=== PATIENT | male | born 1930 | race Caucasian/White ===

== ENCOUNTER 2017-06-23 05:49 | Emergency (ER) | payer MEDICARE, OTHER ==
[2017-06-23] MEDS ORDERED: LORazepam 2 MG/ML DISP.SYRIN IV ONE ×2 (06:03→06:49)
[2017-06-23] MEDS ORDERED: LORazepam 2 MG/ML DISP.SYRIN ONE (06:09)
[2017-06-23 06:17] LABS: Hematocrit 39.2 % (42.0-52.0); Hemoglobin 13.3 gm/dL (13.5-18.0); Mean Cell Volume 94.7 fl (78-100); Mean Corpuscular Hemoglobin 32.1 pg (27-31); Mean Corpuscular Hgb Conc 33.9 g/dl (32-36); Mean Platelet Volume 10.5 fl (6.0-9.5); Neutrophil # 2.9 K/mm3 (1.3-6.0); Neutrophil % 46.6 % (42-75.0); Platelet Count 193 K/mm3 (150-450); Red Blood Count 4.14 M/mm3 (4.7-6.0); Red Cell Distribution Width 13.1 % (11.5-14.0); White Blood Count 6.2 K/mm3 (4.0-10.5)
[2017-06-23 06:31] LABS: BUN/Creatinine Ratio 20.5 (9.0-21.6); Blood Urea Nitrogen 24 mg/dL (6-23); Calcium * 8.7 mg/dL (7.9-10.9); Estimated Creat Clear 57.7; Glucose * 129 mg/dL (70-110)
[2017-06-23 06:36] LABS: Troponin I Less than 0.017 ng/ml (0.00-0.10)
--- NOTE | 2017-06-23 06:37 | ERNOTE ---
Chest Pain/Cardiac HPI Date of Service: 06/23/17 Chief Complaint: Palpitations Time Seen by Provider: 06/23/17 05:56 Source: patient Exam Limitations: no limitations Immunizations: IMMUNIZATION HX Immunizations Up to Date Yes History of Influenza Vaccine No Allergies/Adverse Reactions: Allergies Penicillins Allergy (Verified 06/23/17 06:02) Home Medications: HOME MEDICATIONS Aspirin [Aspirin Chewable] 81 mg PO DAILY 01/17/14 [Last Taken Unknown] Calcium Carbonate [Calcium] 500 mg PO DAILY 01/17/14 [Last Taken Unknown] Multivit-Min/FA/Lycopene/Lut [Centrum Silver Tablet] 1 each PO DAILY 01/17/14 [ Last Taken Unknown] Naproxen 500 mg PO BID 12/21/14 [Last Taken Unknown] ALPRAZolam [Xanax] 0.5 mg PO TID PRN #8 tablet 06/23/17 [Last Taken Unknown] Narrative: 86 year old that was on his way to the bathroom and suddenly experienced palpitations. Denies any shortness of breath, chest or abdominal pain. Denies any fevers, chills, N/V or diaphoresis. Hx of anxiety and panic attack 20 year ago. Ashok is scheduled to see a school leader due to dyspnea with exertion for a couple of months. Date (Duration): 06/23/17 Time (Timing): 06:03 Timing: constant Severity/Quality: moderate Chest Pain Radiation: no radiation Activities at Onset: other Modifying Factors - Improves: Present: nothing Modifying Factors - Worsens: Present: nothing Nitro Today/Relief: no nitro taken today Aspirin Treatment Today: no aspirin today Associated Symptoms: Present: denies symptoms Prior Chest Pain/Cardiac Workup: Reports: no prior cardiac workup Review of Systems - Review of Systems Constitutional: Present: no symptoms reported EYE: Present: no symptoms reported ENT: Present: no symptoms reported Respiratory: Present: no symptoms reported Cardiology: Present: no symptoms reported Gastrointestinal/Abdominal: Present: no symptoms reported Genitourinary: Present: no symptoms reported Musculoskeletal: Present: no symptoms reported Skin: Present: no symptoms reported Neurological: Present: no symptoms reported Endocrine: Present: no symptoms reported Hematologic/Lymphatic: Present: no symptoms reported Psych: Present: no symptoms reported - Patient's Past Medical History Patient History - Medical: Anxiety Patient History - Cardiac/Respiratory: Hyperlipidemia Patient History - Cancer: No Hx of Cancer Patient History - Surgical Procedures: No surgical history - Social History Living Situations: home Smoking Status: Former smoker Alcohol Use: none Drug Use: none - Immunizations Immunizations Up to Date: Yes History of Influenza Vaccine: No Physical Exam - Physical Exam General Appearance: Present: alert, anxious Head Exam: Present: normal inspection Eye Exam: Normal inspection: bilateral Ears, Nose, Throat: Present: normal ENT inspection Neck: Present: normal inspection Respiratory: Present: no respiratory distress Cardiovascular/Chest: Present: regular rate, rhythm Gastrointestinal/Abdominal: Present: nontender, nondistended Back Exam: Present: normal inspection Extremity Exam: Present: normal inspection Neurological Exam: Present: alert, oriented Skin Exam: Present: normal color ED Progress - Results and Orders Patient's Lab Results:: I have reviewed the patient's lab results. - Vital Signs Patient's Vital Signs:: I have reviewed the patient's vital signs. Vital Signs: Vital Signs 06/23/17 05:57 Temperature 36.7 C Pulse Rate 96 Respiratory 21 H Rate Blood Pressure 192/95 O2 Sat by Pulse 97 Oximetry - EKG EKG: NSR EKG read: Interp. by me EKG Comments: normal axis - Progress/Reassessment Chief Complaint: Palpitations Progress:: Improved Progress Note-Subjective: 06/23/17 06:56 Feeling better after the medication and requested additional medication for his anxiety. Departure Clinical Impression: Heart palpitations - Departure Disposition: Home self-care Condition: Good Instructions: Panic Attacks, [id number] Print Language: Latvian Additional Instructions: See your physician so that medication can be prescribed for your anxiety. Return to the ED as needed. Referrals: Wilton Gaming MD [Primary Care Provider] - Prescriptions: ALPRAZolam [Xanax] 0.5 mg PO TID PRN #8 tablet PRN Reason: Anxiety
[2017-06-23 06:41] LABS: Carbon Dioxide 25.2 mmol/L (24-32.6); Chloride 108 mmol/L (97-106); Potassium 4.2 mmol/L (3.4-4.6); Sodium 143 mmol/L (132-142)
[2017-06-23 07:33] VITALS: BP 132/64
== END 2017-06-23 07:33 | disposition home or self-care (01) ==
LOC: ER 05:49
DX: R00.2 Palpitations (principal); E78.5 Hyperlipidemia, unspecified; F41.9 Anxiety disorder, unspecified

== ENCOUNTER 2017-06-25 15:00 | Observation (INO) | payer MEDICARE, OTHER ==
[2017-06-25] MEDS ORDERED: LIDOCAINE HCL 10 APPL CARTRIDGE ONE (15:53)
[2017-06-25 16:20] LABS: Hematocrit 37.2 % (42.0-52.0); Hemoglobin 12.8 gm/dL (13.5-18.0); Mean Cell Volume 92.5 fl (78-100); Mean Corpuscular Hemoglobin 31.8 pg (27-31); Mean Corpuscular Hgb Conc 34.4 g/dl (32-36); Mean Platelet Volume 10.8 fl (6.0-9.5); Neutrophil # 4.2 K/mm3 (1.3-6.0); Neutrophil % 69.8 % (42-75.0); Platelet Count 179 K/mm3 (150-450); Red Blood Count 4.02 M/mm3 (4.7-6.0); Red Cell Distribution Width 13.2 % (11.5-14.0)
[2017-06-25 16:26] LABS: Urine Bilirubin Negative (NEGATIVE); Urine Blood Negative /ul (NEGATIVE); Urine Ketone 15 mg/dL (NEGATIVE); Urine Nitrite Negative (NEGATIVE); Urine Protein 15 mg/dL (NEGATIVE); Urine Specific Gravity >=1.030 SP.GR. (1.005-1.030); Urine Urobilinogen Normal (NORMAL)
[2017-06-25 16:35] LABS: Albumin * 3.2 gm/dl (3.4-5.0); Anion Gap 14.9 mmol/L (6.8-13.8); BUN/Creatinine Ratio 22.1 (9.0-21.6); Bilirubin, Total 0.6 mg/dL (0.0-1.1); CRP 12.3 mg/dL (0.0-0.9); Calcium * 8.7 mg/dL (7.9-10.9); Carbon Dioxide 25.1 mmol/L (24-32.6); Total Protein 6.9 gm/dL (6.2-8.2)
[2017-06-25 16:41] LABS: Urine Appearance Clear; Urine Color Yellow
[2017-06-25 16:43] LABS: Urine Bacteria None Seen; Urine RBC None Seen /hpf (0-5); Urine WBC None Seen /hpf (0-5)
--- NOTE | 2017-06-25 16:46 | ERNOTE ---
Medical Problem HPI - Narrative Date of Service: 06/25/17 - General Chief Complaint: General Assessment Time Seen by Provider: 06/25/17 15:30 Source: patient, family Exam Limitations: no limitations - Immun/Allergies/Home Medications Immunizations: IMMUNIZATION HX Immunizations Up to Date Yes History of Influenza Vaccine No Hx Pneumococcal Vaccination No Allergies/Adverse Reactions: Allergies Penicillins Allergy (Verified 06/25/17 15:14) Home Medications: HOME MEDICATIONS Aspirin [Aspirin Chewable] 81 mg PO DAILY 01/17/14 [Last Taken Unknown] Calcium Carbonate [Calcium] 500 mg PO DAILY 01/17/14 [Last Taken Unknown] Multivit-Min/FA/Lycopene/Lut [Centrum Silver Tablet] 1 each PO DAILY 01/17/14 [ Last Taken Unknown] ALPRAZolam [Xanax] 0.5 mg PO TID PRN #8 tablet 06/23/17 [Last Taken Unknown] Beta-Carotene(A) W-C , E/Min [Ocuvite] 1 tab PO DAILY 06/25/17 [Last Taken Unknown] Montelukast Sodium [Singulair] 10 mg PO DAILY 06/25/17 [Last Taken Unknown] Sulfamethoxazole/Trimethoprim [Sulfamethoxazole-Tmp Ds Tablet] 1 each PO BID [Last Taken Unknown] Tamsulosin HCl 0.4 mg PO DAILY 06/25/17 [Last Taken Unknown] - History of Present History Narrative: Pt. comes in with c/o hip pain and weakness for two days. Pt. states that he was seen here two days ago and was diagnosed with anxiety and was sent home and states that despite using his walker he is still having difficulty ambulating and his legs are feeling like they want to go out from under him. Pt. denies any CP, SOB, headache, dizziness, vision changes but states that he has had difficulty urinating, abd pain, B hip pain, chills, malaise, fatigue but denies any recent illness, recent injury, or prehospital treatment. Review of Systems - Review of Systems Constitutional: Present: recent illness, chills, weakness, fatigue, malaise. Absent: fever EYE: Present: no symptoms reported ENT: Present: no symptoms reported Respiratory: Present: no symptoms reported. Absent: shortness of breath, cough , wheezing Cardiology: Present: no symptoms reported. Absent: chest pain, palpitations, edema Gastrointestinal/Abdominal: Present: abdominal pain. Absent: nausea, vomiting, diarrhea Genitourinary: Present: pain, dysuria, decreased urinary output Musculoskeletal: Present: joint pain - B hips. Absent: back pain Skin: Present: no symptoms reported. Absent: rash, change in color Neurological: Present: weakness. Absent: headache, dizziness/light-headedness, numbness, tingling All Other Systems: All systems neg except as marked - Patient's Past Medical History Patient History - Medical: Anxiety Patient History - Cardiac/Respiratory: Hyperlipidemia Patient History - Cancer: No Hx of Cancer Patient History - Surgical Procedures: No surgical history - Social History Living Situations: home Abuse History: No History of abuse Psych History: Hx of Anxiety Smoking Status: Never smoker Have you smoked in the past 12 months: No Do you dip or chew tobacco: No Alcohol Use: none Drug Use: none - Immunizations Immunizations Up to Date: Yes Hx Pneumococcal Vaccination: No History of Influenza Vaccine: No Physical Exam - Physical Exam General Appearance: Present: wd/wn, alert, no apparent distress Head Exam: Present: normal inspection, no evidence of injury Eye Exam: Normal inspection: bilateral, PERRL: bilateral, EOMI: bilateral Ears, Nose, Throat: Present: dry mucous membranes. Absent: nasal congestion, pharyngeal erythema, pharyngeal swelling Neck: Present: normal inspection, nontender. Absent: lymphadenopathy (R), lymphadenopathy (L) Respiratory: Present: no respiratory distress, normal breath sounds, no accessory muscle use, chest nontender, lungs clear. Absent: rhonchi, stridor, wheezing Cardiovascular/Chest: Present: regular rate, rhythm, no murmur, normal peripheral pulses Gastrointestinal/Abdominal: Present: normal bowel sounds, nondistended, soft, no organomegaly, tenderness - BLQ and suprapubic Back Exam: Present: normal inspection, normal range of motion, no CVA tenderness , no vertebral tenderness Extremity Exam: Present: non-tender, normal range of motion, no edema, other - 4 /5 strength lifting off bed against resistance Neurological Exam: Present: alert, oriented, normal mood/affect, motor weakness - BLE Skin Exam: Present: normal color, warm/dry. Absent: pallor, skin rash ED Progress - Date and Time Seen: Date and Time: 06/25/17 18:05 Pt. unable to stand with out assistance and only able to stand for 30 seconds with 2 person assist. 06/25/171809 Discussed with Dr Silas Reeves and he requests a CT lumbar c contrast and CT head c contrast and consult IM [id number] Hayes and he would like MRI of lumbar in the morning and PT /OT but has no other changes - Results and Orders Patient's Lab Results:: I have reviewed the patient's lab results. - Vital Signs Patient's Vital Signs:: I have reviewed the patient's vital signs. Vital Signs: Vital Signs 06/25/17 06/25/17 15:05 15:12 Temperature 37.5 C Pulse Rate 95 Respiratory 14 Rate Blood Pressure 127/51 O2 Sat by Pulse 95 Oximetry - X-Ray X-Ray #1 X-Ray: abdomen Interpretation: Reviewed by me X-ray Comments: mild stool retention X-Ray #2 X-Ray: lumbosacral Interpretation: Reviewed by me X-ray Comments: disc space narrowing L5 S1 X-Ray #3 X-Ray: chest Interpretation: Reviewed by me X-ray Comments: no acute - Progress/Reassessment Chief Complaint: General Assessment Departure Clinical Impression: Weakness of both legs - Departure Disposition: [facility] Condition: Fair
[2017-06-25] MEDS ORDERED: NORMAL SALINE 1,000 ML IV ONE (17:27)
--- NOTE | 2017-06-25 19:09 | HP ---
Chief Complaint - Chief Complaint Date of Service: 06/25/17 Time of Service: 19:01 Chief Complaint: Weak legs History of Present Illness: This is an 86 year old man who has a problem with very weak legs and bilateral hip pain. He has had this problem for two days. He was in this same emergency room two days ago and was diagnosed with anxiety and was sent home. Despite using his walker, he is still having difficulty ambulating. His legs feel like they want to go out from under him. He denies any chest pain, shortness of breath, headache, dizziness, vision change or fever, but states that he has had difficulty urinating. He has had no abdominal pain, but has had bilateral hip pain. He has had no chills, malaise, fatigue or any recent illness, injury , or prehospital treatment. He has never had leg weakness like this before. In the emergency room today his sed rate was a little elevated, but his CRP was quite elevated. - Patient's Past Medical History Patient History - Medical: Anxiety Patient History - Cardiac/Respiratory: Hyperlipidemia Patient History - Cancer: No Hx of Cancer Patient History - Surgical Procedures: No surgical history - Social History Living Situations: home Abuse History: No History of abuse Psych History: Hx of Anxiety Smoking Status: Never smoker Have you smoked in the past 12 months: No Do you dip or chew tobacco: No Alcohol Use: none Drug Use: none - Immunizations Immunizations Up to Date: Yes Hx Pneumococcal Vaccination: No History of Influenza Vaccine: No Review Of Systems (GEN) - Review of Systems Generalized/Overall Review: Present: Weakness - of the legs EENTM: Present: No Symptoms Reported Respiratory: Present: No Symptoms Reported Cardiac: Present: No Symptoms Reported Abdominal: Present: No Symptoms Reported Genitourinary: Present: Other - trouble voiding Musculoskeletal: Present: Other - bilateral hip pain Neurological: Present: No Symptoms Reported Skin: Present: No Symptoms Reported Endocrine: Present: No Symptoms Reported Misc: All systems neg except as marked Immunizations: IMMUNIZATION HX Immunizations Up to Date Yes History of Influenza Vaccine No Hx Pneumococcal Vaccination No Allergies/Adverse Reactions: Allergies Allergy/AdvReac Type Severity Reaction Status Date / Time Penicillins Allergy Verified 06/25/17 15:14 Home Medications: HOME MEDICATIONS Aspirin [Aspirin Chewable] 81 mg PO DAILY 01/17/14 [Last Taken Unknown] Calcium Carbonate [Calcium] 500 mg PO DAILY 01/17/14 [Last Taken Unknown] Multivit-Min/FA/Lycopene/Lut [Centrum Silver Tablet] 1 each PO DAILY 01/17/14 [ Last Taken Unknown] ALPRAZolam [Xanax] 0.5 mg PO TID PRN #8 tablet 06/23/17 [Last Taken Unknown] Beta-Carotene(A) W-C , E/Min [Ocuvite] 1 tab PO DAILY 06/25/17 [Last Taken Unknown] Montelukast Sodium [Singulair] 10 mg PO DAILY 06/25/17 [Last Taken Unknown] Sulfamethoxazole/Trimethoprim [Sulfamethoxazole-Tmp Ds Tablet] 1 each PO BID [Last Taken Unknown] Tamsulosin HCl 0.4 mg PO DAILY 06/25/17 [Last Taken Unknown] Exam - Exam Vital Signs: Vital Signs - Last Taken Selected Entries 06/25/17 06/25/17 15:05 17:55 Temperature 37.5 C Pulse Rate 94 Respiratory 15 Rate Blood Pressure 147/70 O2 Sat by Pulse 92 Oximetry Oxygen Delivery Room Air Method Constitutional: Present: Alert, Oriented x3, Cooperative, Well developed, Well nourished, No distress ENT Exam: Present: normal ENT inspection, hearing grossly normal Eye Exam: bilateral eye: normal inspection, PERRL, EOMI Neck: Present: normal inspection Back Exam: Present: normal inspection Respiratory: Present: normal breath sounds, no respiratory distress Cardiovascular/Chest: Present: regular rate, rhythm, no murmur Abdomen: Present: Normal bowel sounds, soft, nontender, nondistended, no rebound tenderness, no hepatospenomegaly, no masses Extremity: Present: normal inspection, no pedal edema Skin Exam: Present: normal color, warm/dry, no cyanosis Neurologic: Present: alert, normal mood/affect, other - can lift legs against gravity, but cannot walk on his own, can barely walk with two person assist Appearance: Present: appropriate appearance, appropriate insight, neat, no memory impairment Eye contact: Present: cooperative, good eye contact, normal speech Thoughts: Present: normal thought pattern Diagnostic Studies: Laboratory Results WBC 6.0 K/mm3 (4.0-10.5) 06/25/17 16:03 RBC 4.02 M/mm3 (4.7-6.0) L 06/25/17 16:03 Hgb 12.8 gm/dL (13.5-18.0) L 06/25/17 16:03 Hct 37.2 % (42.0-52.0) L 06/25/17 16:03 MCV 92.5 fl (78-100) 06/25/17 16:03 MCH 31.8 pg (27-31) H 06/25/17 16:03 MCHC 34.4 g/dl (32-36) 06/25/17 16:03 RDW 13.2 % (11.5-14.0) 06/25/17 16:03 Plt Count 179 K/mm3 (150-450) 06/25/17 16:03 MPV 10.8 fl (6.0-9.5) H 06/25/17 16:03 Immature Gran % (Auto) 0.30 % (0.001-0.429) 06/25/17 16:03 Immature Gran # (Auto) 0.02 K/mm3 (0.000-0.0310) 06/25/17 16:03 Neutrophils % 69.8 % (42-75.0) 06/25/17 16:03 Lymphocytes % 18.6 % (20-51) L 06/25/17 16:03 Monocytes % 9.6 % (0.0-9) H 06/25/17 16:03 Eosinophils % 1.0 % (0.0-3.0) 06/25/17 16:03 Basophils % 0.7 % (0.0-1.0) 06/25/17 16:03 Nucleated RBC % 0.0 k/mm3 (0-1) 06/25/17 16:03 Neutrophils # 4.2 K/mm3 (1.3-6.0) 06/25/17 16:03 Lymphocytes # 1.1 k/mm3 (1.5-3.5) L 06/25/17 16:03 Monocytes # 0.6 k/mm3 (0.0-1.0) 06/25/17 16:03 Eosinophils # 0.1 k/mm3 (0.0-0.7) 06/25/17 16:03 Absolute Basophils 0.0 k/mm3 (0.0-0.1) 06/25/17 16:03 ESR 49 mm/hr (0-10) H 06/25/17 16:03 Sodium 142 mmol/L (132-142) 06/25/17 16:03 Plasma Sodium 142 mmol/L (130-142) 06/25/17 16:03 Potassium 4.0 mmol/L (3.4-4.6) 06/25/17 16:03 Chloride 106 mmol/L (97-106) 06/25/17 16:03 Carbon Dioxide 25.1 mmol/L (24-32.6) 06/25/17 16:03 Anion Gap 14.9 mmol/L (6.8-13.8) H 06/25/17 16:03 BUN 25 mg/dL (6-23) H 06/25/17 16:03 Creatinine 1.13 mg/dL (0.4-1.4) 06/25/17 16:03 Est GFR (Non-Af Amer) 66 mL/min (60-130) 06/25/17 16:03 BUN/Creatinine Ratio 22.1 (9.0-21.6) H 06/25/17 16:03 Random Glucose 115 mg/dL (70-110) H 06/25/17 16:03 Lactic Acid, Venous 1.5 mmol/L (0.4-1.9) 06/25/17 16:03 Calcium 8.7 mg/dL (7.9-10.9) 06/25/17 16:03 Calcium Adj for Albumin 9.0 mg/dL (8.4-10.2) 06/25/17 16:03 Total Bilirubin 0.6 mg/dL (0.0-1.1) 06/25/17 16:03 AST 33 U/L (0-48) 06/25/17 16:03 ALT 39 U/L (19-67) 06/25/17 16:03 Alkaline Phosphatase 103 U/L (50-170) 06/25/17 16:03 Creatine Kinase 128 U/L (0-259) 06/25/17 16:00 C-Reactive Prot, Quant 12.3 mg/dL (0.0-0.9) H 06/25/17 16:03 Total Protein 6.9 gm/dL (6.2-8.2) 06/25/17 16:03 Albumin 3.2 gm/dl (3.4-5.0) L 06/25/17 16:03 TSH 1.555 uIU/mL (0.358-3.74) 06/25/17 16:03 Urine Color Yellow 06/25/17 16:10 Urine Appearance Clear 06/25/17 16:10 Urine pH 6.0 pH (5.0-7.0) 06/25/17 16:10 Ur Specific [place] >=1.030 SP.GR. (1.005-1.030) 06/25/17 16:10 Urine Protein 15 mg/dL (NEGATIVE) H 06/25/17 16:10 Urine Glucose (UA) Negative mg/dL (NEGATIVE) 06/25/17 16:10 Urine Ketones 15 mg/dL (NEGATIVE) 06/25/17 16:10 Urine Blood Negative /ul (NEGATIVE) 06/25/17 16:10 Urine Nitrate Negative (NEGATIVE) 06/25/17 16:10 Urine Bilirubin Negative mg/dl (NEGATIVE) 06/25/17 16:10 Prot Sulfosalicylic Acd Negative mg/dL (0) 06/25/17 16:10 Urine Urobilinogen Normal EU/dl (NORMAL) 06/25/17 16:10 Ur Leukocyte Esterase Negative /ul (NEGATIVE) 06/25/17 16:10 Urine RBC None seen /hpf (0-5) 06/25/17 16:10 Urine WBC None seen /hpf (0-5) 06/25/17 16:10 Ur Epithelial Cells None seen /hpf (0-5) 06/25/17 16:10 Urine Bacteria None seen (NONE) 06/25/17 16:10 Urine Culture Comments No culture indicated 06/25/17 16:10 Assessment/Plan - Narrative Narrative: I am puzzled. 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 We will pursue other lab studies and do imaging studies. I will request an internal medicine consult also. Blood cultures are pending. - Assessment/Plan (1) Elevated C-reactive protein (CRP) Problem: Acute (2) Weakness of both legs Problem: Acute
[2017-06-25] MEDS ORDERED: FLU VACC QS2017-18(6MOS UP)/PF 60 MCG/0.5 ML SYRINGE IM ONE (19:16)
[2017-06-26] MEDS ORDERED: ACETAMINOPHEN 325 MG TABLET PO PRN (01:50)
[2017-06-26 06:22] LABS: Hematocrit 35.3 % (42.0-52.0); Hemoglobin 11.8 gm/dL (13.5-18.0); Mean Cell Volume 94.9 fl (78-100); Mean Corpuscular Hemoglobin 31.7 pg (27-31); Mean Corpuscular Hgb Conc 33.4 g/dl (32-36); Neutrophil # 3.4 K/mm3 (1.3-6.0); Neutrophil % 60.3 % (42-75.0); Platelet Count 168 K/mm3 (150-450); Red Blood Count 3.72 M/mm3 (4.7-6.0); Red Cell Distribution Width 13.3 % (11.5-14.0); White Blood Count 5.7 K/mm3 (4.0-10.5)
[2017-06-26 06:44] LABS: Albumin * 2.8 gm/dl (3.4-5.0); Anion Gap 10.6 mmol/L (6.8-13.8); BUN/Creatinine Ratio 21.1 (9.0-21.6); Bilirubin, Total 0.5 mg/dL (0.0-1.1); CRP 15.8 mg/dL (0.0-0.9); Ca. Corrected For Albumin 8.9 mg/dL (8.4-10.2); Calcium * 8.3 mg/dL (7.9-10.9); Carbon Dioxide 24.3 mmol/L (24-32.6); Potassium 3.9 mmol/L (3.4-4.6); Total Protein 6.1 gm/dL (6.2-8.2)
--- NOTE | 2017-06-26 07:46 | CONS ---
[facility] - General Date of Service: 06/26/17 Narrative: Ashok Carrillo, is an 86 year old man, patient of Dr. Gaming, who was admitted on because of very weak legs and bilateral hip pain. He has had this problem for the last 2 weeks but has gotten worst the last 2 days. He was in this same emergency room two days ago and was diagnosed with anxiety and was sent home. Despite using his walker, he is still having difficulty ambulating. His lower extremities feel like they want to go out from under him. He says he would be stiff in the morning and mostly his weakness involves only his proximal muscles ( thighs) and he does not feel any problem with his legs. .He denies any chest pain, shortness of breath, headache, dizziness, vision change or fever, but states that he has had difficulty urinating. He has had no abdominal pain, but has had pelvic pain and bilateral hip pain. He has had no chills, malaise, fatigue or any recent illness, injury, or prehospital treatment. He denies temporal tenderness, vision problem ( although he does uses corrective glasses), jaw claudication. He has never had leg weakness like this before. In the emergency room his sed rate was a little elevated, but his CRP was quite elevated. His LS xray showed moderate to marked disc narrowing of L5-S1. I am being consulted by Dr. Jensen. 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 He says he was also started on statin medication for high cholesterol about 2 weeks ago. Source: patient, RN/MD - History of Present Illness Severity: moderate Associated Symptoms: other - denies rash, F/C, recent infrction. Allergies/Adverse Reactions: Allergies Penicillins Allergy (Verified 06/25/17 15:14) Home Medications: Home Medications Medication Instructions Recorded Last Taken Aspirin [Aspirin Chewable] 81 mg PO DAILY 01/17/14 Unknown Calcium Carbonate [Calcium] 500 mg PO DAILY 01/17/14 Unknown Multivit-Min/FA/Lycopene/Lut 1 each PO DAILY 01/17/14 Unknown [Centrum Silver Tablet] Beta-Carotene(A) W-C , E/Min 1 tab PO DAILY 06/25/17 Unknown [Ocuvite] Montelukast Sodium [Singulair] 10 mg PO DAILY 06/25/17 Unknown Sulfamethoxazole/Trimethoprim 1 each PO BID 06/25/17 Unknown [Sulfamethoxazole-Tmp Ds Tablet] Tamsulosin HCl 0.4 mg PO DAILY 06/25/17 Unknown - Patient's Past Medical History Patient History - Medical: Anxiety Patient History - Cardiac/Respiratory: Hyperlipidemia Patient History - Cancer: No Hx of Cancer Patient History - Surgical Procedures: No surgical history Patient History - Other: None - Family History Father Family History - Medical: Other Family History - Cardiac/Respiratory: CVA/Stroke - Social History Living Situations: home Abuse History: No History of abuse Psych History: Hx of Anxiety Smoking Status: Never smoker Have you smoked in the past 12 months: No Do you dip or chew tobacco: No Alcohol Use: none Drug Use: none - Immunizations Immunizations Up to Date: Yes Hx Pneumococcal Vaccination: No History of Influenza Vaccine: No Procedures ENDOSC POLYPECTOMY OF LG INTEST (07/20/03) Medications - Medications Current Medications: Current Medications Acetaminophen (Tylenol) 650 mg PO Q6H PRN PRN Reason: Mild pain Stop: 07/26/17 01:51 Last Admin: 06/26/17 01:57 Dose: 650 mg Review of Systems - Review of Systems Generalized/Overall Review: Present: Weakness. Absent: Chills, Fever EENTM: Absent: Blurred Vision, Throat Pain Respiratory: Absent: Cough Cardiac: Absent: Chest Pain, Edema, Palpitations Abdominal: Absent: Nausea, Vomiting Genitourinary: Absent: Urgency, Frequency Musculoskeletal: Present: Joint Pain Physical Examination - Exam Vital Signs: Vital Signs - Last Taken Temp 37 C 06/26/17 07:14 Pulse 85 06/26/17 07:14 Resp 18 06/26/17 07:14 BP 131/48 06/26/17 07:14 Pulse Ox 96 06/26/17 07:14 O2 Oxygen Delivery Method Room Air Constitutional: Present: Alert, Oriented x3, Cooperative, Elderly Eye Exam: bilateral eye: normal inspection, PERRL, EOMI Neck: Present: supple Respiratory: Present: decreased breath sounds, No rales, No wheezing Cardiovascular/Chest: Present: regular rate, rhythm, no JVD, no murmur Abdomen: Present: Normal bowel sounds, soft, nontender, nondistended Extremity: Present: other - negative muscle tenderness Neurologic: Present: rib builder II-XII nml as tested, oriented x 3, motor weakness - Grade 4+/5, lower extremities, other - hypoactive reflexes. 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 for MRI today. CK is WNL and so unlikely drug induced from statin and unlikely inflammatory myositis (polymyositis/dermatomyositis). No recent h/o infection/recent vaccination and so unlikely GBS. Since his ESR is 47-49/ CRP of 12- 15 and involves primarily his proximal muscles, even though it is his lower extremities than usual upper extremities, I still think this could be PMR. I would start him on Prednisone 20 mg PO qd and see if there is a dramatic response to it but will wait for the MRI results today before doing so. He has no s/sx of Giant cell arteritis ( temporal arteritis). Will refer him to PT. will add KAROL, RF. TSH is normal. Problem: Acute (2) Elevated C-reactive protein (CRP) Problem: Acute (3) Elevated erythrocyte sedimentation rate Problem: Acute
[2017-06-26] MEDS ORDERED: CALCIUM CARBONATE 500 MG TAB.CHEW PO SCH (09:00)
[2017-06-26] MEDS ORDERED: MULTIVIT-MIN/FA/LYCOPEN/LUTEIN 1 TAB TABLET PO SCH (09:00)
[2017-06-26] MEDS ORDERED: ASPIRIN 81 MG TAB.CHEW PO SCH (09:00)
[2017-06-26] MEDS ORDERED: FLU VACC QS2017-18(6MOS UP)/PF 60 MCG/0.5 ML SYRINGE IM ONE (09:00)
[2017-06-26] MEDS ORDERED: BETA-CAROTENE(A) W-C , E/MIN 1 TAB TABLET PO SCH (09:00)
[2017-06-26 11:51] VITALS: BP 138/56
--- NOTE | 2017-06-26 14:53 | DS ---
(1) Polymyalgia rheumatica Problem: Acute Description of Stay: The patient was a little stronger while here in the hospital, and was able to walk out into the pier[place] with the aid of his walker. His vitals were the same, but he was essentially about the same. His telemetry was stable. His head CT and LS spine MRI were unremarkable. Dr. Hayes and I discussed his situation and agreed his condition could be consistent with a variation of polymyalgia rheumatica and with try a course of low dose corticosteroids. Procedures Performed: none Discharge Disposition: Home self care Disposition: Home self-care Condition: Fair Discharge Activity: Activity as tolerated Discharge Diet: General/regular food Referrals: Wilton Gaming MD [Primary Care Provider] - Problem Oriented Discharge Instructions to Patient/Family: Polymyalgia Rheumatica Additional Patient Instructions (free text): Please make TCM appointment at discharge, if applicable. Thank you! Tata at [phone]. Follow up with Dr. Gaming on Thursday. Prescriptions (Any new or edited meds): predniSONE [Deltasone] 20 mg PO DAILY #30 tablet Complete Home Medications List: Complete Home Medication List: Aspirin [Aspirin Chewable] 81 mg PO DAILY 01/17/14 Calcium Carbonate [Calcium] 500 mg PO DAILY 01/17/14 Multivit-Min/FA/Lycopene/Lut [Centrum Silver Tablet] 1 each PO DAILY 01/17/14 ALPRAZolam [Xanax] 0.5 mg PO TID PRN #8 tablet 06/23/17 Beta-Carotene(A) W-C , E/Min [Ocuvite] 1 tab PO DAILY 06/25/17 Montelukast Sodium [Singulair] 10 mg PO DAILY 06/25/17 Sulfamethoxazole/Trimethoprim [Sulfamethoxazole-Tmp Ds Tablet] 1 each PO BID Tamsulosin HCl 0.4 mg PO DAILY 06/25/17 Acetaminophen [Tylenol] 650 mg PO Q6H PRN tablet 06/26/17 predniSONE [Deltasone] 20 mg PO DAILY #30 tablet 06/26/17
[2017-06-29 19:59] LABS: PTH, Intact 28 pg/mL (14-64)
== END 2017-06-26 17:16 | disposition home or self-care (01) ==
LOC: ER 15:00 → MS 18:21
PROVIDERS: ADMIT Allergy & Immunology; ATTEND Allergy & Immunology
PROC: BT40ZZZ Ultrasonography of Bladder (ICD-10-PCS; principal; 2017-06-25)
PROC: 0T9B70Z Drainage of Bladder with Drainage Device, Via Natural or Artificial Opening (ICD-10-PCS; principal; 2017-06-25)
DX: M35.3 Polymyalgia rheumatica (principal); R53.1 Weakness; F41.9 Anxiety disorder, unspecified; E78.5 Hyperlipidemia, unspecified; Z23 Encounter for immunization; R70.0 Elevated erythrocyte sedimentation rate
CPT/HCPCS: 36415; 51702; 51798; 70470; 71010; 72110; 72158; 74020; 80053; 81001; 82550; 83605; 83970; 84439; 84443; 85025; 85652; 86038; 86140; 86431; 87040; 90471; 90686; 97116; 97162; 97165; 99285; G0378; G8978; G8979; G8980; G8987; G8988; G8989

== ENCOUNTER 2020-08-12 03:45 | Inpatient (IN) ==
[2020-08-12] MEDS ORDERED: NORMAL SALINE 1,000 ML IV ONE ×2 (03:58→08:23)
--- NOTE | 2020-08-12 04:04 | ERNOTE ---
Abdominal HPI - Narrative Date of Service: 08/12/20 - General Chief Complaint: Abdominal Pain Time Seen by Provider: 08/12/20 03:53 Source: patient Exam Limitations: no limitations - Immun/Allergies/Home Medications Immunizatons: IMMUNIZATION HX Immunizations Up to Date Yes History of Influenza Vaccine Yes Hx Pneumococcal Vaccination No Allergies/Adverse Reactions: Allergies Penicillins Allergy (Verified 10/18/19 15:02) propoxyphene [From Darvocet-N 100] Adverse Reaction (Verified 10/18/19 15:02) Home Medications: HOME MEDICATIONS Aspirin [Aspirin Chewable] 81 mg PO DAILY 01/17/14 [Last Taken Unknown] Multivit-Min/FA/Lycopene/Lut [Centrum Silver Tablet] 1 ea PO DAILY 01/17/14 [Last Taken Unknown] Beta-Carotene(A) W-C , E/Min [Ocuvite] 1 tab PO DAILY 06/25/17 [Last Taken Unknown] Acetaminophen [Tylenol] 650 mg PO Q6H PRN tab 06/26/17 [Last Taken Unknown] calcium carbonate 500 mg calcium (1,250 mg) tablet 1,000 mg PO DAILY 05/06/18 [Last Taken Unknown] prednisone 5 mg tablet See Rx Instructions .ROUTE .COMPLEX #90 tab 10/05/19 [Last Taken Unknown] tamsulosin 0.4 mg capsule See Rx Instructions .ROUTE .COMPLEX #90 cap 03/19/20 [Last Taken Unknown] rivaroxaban 20 mg tablet 20 mg PO DAILY #90 tab 04/02/20 [Last Taken Unknown] montelukast 10 mg tablet 10 mg PO DAILY #90 tab 04/16/20 [Last Taken Unknown] - History of Present Illness Narrative: 89-year-old male brought from home complaining of difficulty urinating pressure in the lower abdomen started about 3 hours ago his last good urination was 6 hours also complaining of some burning and lower abdominal pain Date (Duration): 08/12/20 Time (Timing): 04:02 Timing: constant Quality: moderate Activities at Onset: sleep Modifying Factors - (Improves): Present: analgesics, other - Fentanyl given by medics Modifying Factors - (Worsens): Present: lying down Prior Abdominal Problems: Present: none Review of Systems - Review of Systems Constitutional: Present: no symptoms reported, weakness EYE: Present: no symptoms reported ENT: Present: no symptoms reported Respiratory: Present: no symptoms reported Cardiology: Present: no symptoms reported Gastrointestinal/Abdominal: Present: no symptoms reported Genitourinary: Present: no symptoms reported Musculoskeletal: Present: no symptoms reported Skin: Present: no symptoms reported Neurological: Present: no symptoms reported Endocrine: Present: no symptoms reported Hematologic/Lymphatic: Present: no symptoms reported Psych: Present: no symptoms reported Medical History (Last Reviewed 08/12/20 @ 04:03 by Wilton Figueroa MD) Trigeminal neuralgia (Chronic) Onset Date: Unknown Hypertension (Chronic) Onset Date: Unknown BPH with urinary obstruction (Chronic) Onset Date: Unknown Back pain (Chronic) Onset Date: ~12/14/14 Fatigue Onset Date: Unknown Macular degeneration of right eye Onset Date: Unknown Polio Onset Date: Unknown 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 Surgical History: Surgical History (Last Reviewed 08/12/20 @ 04:03 by Wilton Figueroa MD) History of bilateral cataract extraction Onset Date: Unknown History of colonoscopy Onset Date: Unknown Family History: Family History (Last Reviewed 08/12/20 @ 04:42 by Edita Perales RN) Other No pertinent family history Social History: (Last Reviewed 08/12/20 @ 03:59 by Edita Perales RN) Social History: adopted: No senior care: No Marital status: lives independently: No household members: spouse number of children: 5 current occupational status: retired 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 Highest level of school completed/degree received: high school graduate Service: Yes branch: [employer] status: discharged known or potential exposure: none Tobacco: Smoking Status: Former smoker Alcohol: alcohol intake: current Alcohol type: beer alcohol intake frequency: a few times a month Substance Use: substance use type: does not use Dietary Habits: caffeine: Yes caffeine comment: some Grecia/Alevism: grecia/restorationism: Mormonism special grecia needs: No Physical Exam - Physical Exam General Appearance: Present: wd/wn, alert, mild distress Head Exam: Present: normal inspection Eye Exam: Normal inspection: bilateral, PERRL: bilateral, EOMI: bilateral Ears, Nose, Throat: Present: pharyngeal erythema, dry mucous membranes Neck: Present: normal inspection Respiratory: Present: no respiratory distress Cardiovascular/Chest: Present: tachycardia Peripheral Pulses: N=norm/S=strong/W=weak/B=bound/A=absent: Carotid (R): Normal, Carotid (L): Normal Gastrointestinal/Abdominal: Present: normal bowel sounds, nontender, nondistended, soft Back Exam: Present: normal inspection Extremity Exam: Present: normal inspection Neurological Exam: Present: alert, oriented, normal mood/affect Skin Exam: Present: normal color Lymphatic Exam: Present: no adenopathy Progress - Results and Orders Patient's Lab Results:: I have reviewed the patient's lab results. Results and Orders: Laboratory Tests 08/12/20 08/12/20 04:15 04:15 WBC 17.1 H RBC 4.25 L Hgb 13.2 L Hct 40.7 L MCV 95.8 MCH 31.1 H MCHC 32.4 RDW 13.2 Plt Count 215 Urine Color Yellow Urine Appearance Clear Urine pH 6.0 Ur Specific [place] 1.020 Urine Protein Negative Urine Glucose (UA) 250 H Urine Ketones 5 Urine Blood 5 H Urine Nitrate Negative Urine Bilirubin Negative Urine Urobilinogen Normal Ur Leukocyte Esterase Negative Urine RBC None seen Urine WBC None seen Ur Epithelial Cells None seen Urine Bacteria None seen Urine Culture Comments Culture to follow Laboratory Tests 08/12/20 08/12/20 08/12/20 04:15 04:15 04:30 WBC 17.1 H RBC 4.25 L Hgb 13.2 L Hct 40.7 L Plt Count 215 Neutrophils % (Manual) 71 Band Neuts % (Manual) 14 H Lymphocytes % (Manual) 6 L Monocytes % (Manual) 5 Sodium 140 Plasma Sodium 142 Potassium 3.8 Chloride 106 Carbon Dioxide 25.6 Anion Gap 12.2 BUN 20 Creatinine 1.01 Est GFR (Non-Af Amer) 74 BUN/Creatinine Ratio 19.8 Random Glucose 213 H Lactic Acid, Venous 2.1 H Calcium 8.3 Calcium Adj for Albumin 8.9 Total Bilirubin 0.7 AST 13 ALT 14 L Alkaline Phosphatase 81 Troponin I 0.017 B-Natriuretic Peptide 570 Total Protein 6.3 Albumin 2.8 L Lipase 37 L Laboratory Tests 08/12/20 05:00 pCO2 30.9 L pO2 56.1 L HCO3 21.3 Total CO2 22.3 Base Excess -1.5 ABG pH 7.46 H ABG O2 Sat (Measured) 91.0 L Covid negative - Vital Signs Patient's Vital Signs:: I have reviewed the patient's vital signs. Vital Signs: Vital Signs 08/12/20 03:54 Temperature 37.1 C Pulse Rate 104 H Respiratory Rate 25 H Blood Pressure 135/60 O2 Sat by Pulse Oximetry 93 - EKG EKG #1 EKG: NSR EKG read: Interp. by me EKG Comments: EKG sinus tachycardia 101 no acute changes when compared to 2019 - X-Ray X-Ray #1 X-Ray: chest Interpretation: Interp. by me X-ray Comments: Bilateral bilateral lung infiltrates new from 2019 X-Ray #2 X-Ray: abdomen Interpretation: Interp. by me X-ray Comments: Nonspecific gas there is a larger fecal ball in the rectum no acute changes - Progress/Reassessment Chief Complaint: Abdominal Pain Plan - Plan Plan: Plan is to admit the patient observation begin antibiotics Patient to be admitted to Dr. Solares Departure Clinical Impression: Bilateral interstitial pneumonia - Departure Disposition: Short Term Hospital Inpatient Condition: Stable Referrals: Martín Caba DO [Primary Care Provider] -
[2020-08-12 04:41] LABS: Hematocrit 40.7 % (42.0-52.0); Hemoglobin 13.2 gm/dL (13.5-18.0); Mean Cell Volume 95.8 fl (78-100); Mean Corpuscular Hemoglobin 31.1 pg (27-31); Mean Corpuscular Hgb Conc 32.4 g/dl (32-36); Mean Platelet Volume 10.7 fl (8-11.3); Platelet Count 215 K/mm3 (150-450); Red Blood Count 4.25 M/mm3 (4.7-6.0); Red Cell Distribution Width 13.2 % (11.5-14.0); White Blood Count 17.1 K/mm3 (4.0-10.5)
[2020-08-12 04:42] LABS: Urine Bilirubin Negative (NEGATIVE); Urine Ketone 5 mg/dL (NEGATIVE); Urine Nitrite Negative (NEGATIVE); Urine Protein Negative (NEGATIVE); Urine Urobilinogen Normal (NORMAL)
[2020-08-12 04:45] LABS: Total Cells Counted 100
[2020-08-12 04:53] LABS: Urine Appearance Clear (CLEAR); Urine Bacteria None Seen; Urine Blood 5 /ul (NEGATIVE); Urine Color Yellow; Urine RBC None Seen /hpf (0-5); Urine WBC None Seen /hpf (0-5)
[2020-08-12 05:00] LABS: Atypical (Reactive) Lymph 2 % (0-2); Band 14 % (0-2.0); Dohle Bodies 1+; Immature Granulocyte 2 (0-1); Lymphocyte 6 % (20-51); Monocyte 5 % (0-9); Neutrophil 71 % (42-75); Neutrophil # 12.1 K/mm3 (1.3-6.0); Toxic Granulation 1+
[2020-08-12 05:01] LABS: Albumin * 2.8 gm/dl (3.4-5.0); Anion Gap 12.2 mmol/L (6.8-13.8); BUN/Creatinine Ratio 19.8 (9.0-21.6); Bilirubin, Total 0.7 mg/dL (0.0-1.1); Ca. Corrected For Albumin 8.9 mg/dL (8.4-10.2); Calcium * 8.3 mg/dL (7.9-10.9); Carbon Dioxide 25.6 mmol/L (24-32.6); Potassium 3.8 mmol/L (3.4-4.6); Total Protein 6.3 gm/dL (6.2-8.2); Troponin I 0.017 ng/mL (0.00-0.10)
[2020-08-12] MEDS: LEVOFLOXACIN IN DEXTROSE 5 % 750 MG/150 ML BAG IV SCH (05:21)
--- NOTE | 2020-08-12 10:01 | HP ---
Chief Complaint - Chief Complaint Date of Service: 08/12/20 Time of Service: 10:00 Chief Complaint: stomach pain History of Present Illness: Came to the ED for terrible pains in his stomach. He reports the pain is around his waist. He denies having this problem in the past. He has been having some trouble with urinary retention. Also reports having problems with constipation, and denies diarrhea. He denies recent fever. In the ED, white blood cell count elevated to 17.1 and he has bands. Lipase not elevated. He had a mild lactate of 2.1, 2.5 and repeat, resolved at 1.8. He has been afebrile. Urinalysis showed glucose and blood, but no bacteria, leukocyte esterase, or nitrites. Covid negative. Chest x-ray was concerning for potential pneumonia, so he was admitted for pneumonia treatment. EMS reported oxygen saturations in the mid to upper 80s, so oxygen was started. He was given a dose of Levaquin and a fluid bolus in the ED. On my exam, he denies any chest complaints. He is using 1 L via nasal cannula, he does not normally use oxygen. He is very concerned about his lower abdominal pain. He feels like his pain did improve after a Marrero catheter was placed. 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 Surgical History: Surgical History (Last Reviewed 08/12/20 @ 07:37 by Fatoumata Fairbanks RN) History of bilateral cataract extraction Onset Date: Unknown History of colonoscopy Onset Date: Unknown Family History: Family History (Last Reviewed 08/12/20 @ 07:37 by Fatoumata Fairbanks RN) Other No pertinent family history Social History: (Last Reviewed 08/12/20 @ 07:37 by Fatoumata Fairbanks RN) Social History: adopted: No mcfp: No Marital status: lives independently: No household members: spouse number of children: 5 current occupational status: retired Previous occupational history: Sport Intern Highest level of school completed/degree received: high school graduate Service: Yes branch: [employer] status: discharged known or potential exposure: none Tobacco: Smoking Status: Former smoker Alcohol: alcohol intake: current Alcohol type: beer alcohol intake frequency: a few times a month Substance Use: substance use type: does not use Dietary Habits: caffeine: Yes caffeine comment: some Grecia/Cheondoism: grecia/congregation: Nondenominational special grecia needs: No Review Of Systems (GEN) - Review of Systems Generalized/Overall Review: Absent: Fever Respiratory: Absent: Cough Cardiac: Absent: Chest Pain Abdominal: Present: Abdominal Pain - lower Genitourinary: Present: Retention Skin: Present: Rash - in groin, per nursing staff Immunizations: IMMUNIZATION HX Immunizations Up to Date Yes History of Influenza Vaccine Yes Hx Pneumococcal Vaccination No Allergies/Adverse Reactions: Allergies Allergy/AdvReac Type Severity Reaction Status Date / Time Penicillins Allergy Verified 08/12/20 07:37 propoxyphene AdvReac Verified 08/12/20 07:37 [From [facility] 100] Home Medications: HOME MEDICATIONS Aspirin [Aspirin Chewable] 81 mg PO DAILY 01/17/14 [Last Taken Unknown] Multivit-Min/FA/Lycopene/Lut [Centrum Silver Tablet] 1 ea PO DAILY 01/17/14 [Last Taken Unknown] Beta-Carotene(A) W-C , E/Min [Ocuvite] 1 tab PO DAILY 06/25/17 [Last Taken Unknown] Acetaminophen [Tylenol] 650 mg PO Q6H PRN tab 06/26/17 [Last Taken Unknown] calcium carbonate 500 mg calcium (1,250 mg) tablet 1,000 mg PO DAILY 05/06/18 [Last Taken Unknown] rivaroxaban 20 mg tablet 20 mg PO DAILY #90 tab 04/02/20 [Last Taken Unknown] montelukast 10 mg tablet 10 mg PO DAILY #90 tab 04/16/20 [Last Taken Unknown] Tamsulosin HCl [Flomax] 0.4 mg PO DAILY 08/12/20 [Last Taken Unknown] predniSONE [Prednisone] 5 mg PO DAILY 08/12/20 [Last Taken Unknown] Exam - Exam Vital Signs: Vital Signs - Last Taken Temp 36.7 C 08/12/20 07:38 Pulse 78 08/12/20 07:38 Resp 24 H 08/12/20 07:38 BP 133/74 08/12/20 07:38 Pulse Ox 94 08/12/20 07:38 Constitutional: Present: Alert, Cooperative, Other - Appears somewhat uncomfortable, Obese Respiratory: Present: lungs clear, normal breath sounds, no respiratory distress, other - Using 1 L oxygen via nasal cannula Cardiovascular/Chest: Present: regular rate, rhythm Abdomen: Present: soft, other - Marrero catheter in place, distended Extremity: Absent: lower extremity edema Eye contact: Present: cooperative Diagnostic Studies: Abnormal Lab Results 08/12/20 08/12/20 08/12/20 Range/Units 04:15 04:15 04:15 WBC 17.1 H (4.0-10.5) K/mm3 RBC 4.25 L (4.7-6.0) M/mm3 Hgb 13.2 L (13.5-18.0) gm/dL Hct 40.7 L (42.0-52.0) % MCH 31.1 H (27-31) pg Band Neuts % (Manual) 14 H (0-2.0) % Lymphocytes % (Manual) 6 L (20-51) % Immature Granulocytes 2 H (0-1) Neutrophils # (Manual) 12.1 H (1.3-6.0) K/mm3 Lymphocytes # (Manual) 1.0 L (1.5-3.5) k/mm3 pCO2 (35.0-48.0) mmHg pO2 (83.0-108.0) mmHg ABG pH (7.35-7.45) ABG O2 Sat (Measured) (94.0-98.0) % Random Glucose 213 H (70-110) mg/dL Lactic Acid, Venous (0.4-2.0) mmol/L ALT 14 L (19-67) U/L Albumin 2.8 L (3.4-5.0) gm/dl Lipase 37 L (73-393) U/L Urine Glucose (UA) 250 H (NEGATIVE) mg/dL Urine Blood 5 H (NEGATIVE) /ul 08/12/20 08/12/20 08/12/20 Range/Units 04:30 05:00 07:08 WBC (4.0-10.5) K/mm3 RBC (4.7-6.0) M/mm3 Hgb (13.5-18.0) gm/dL Hct (42.0-52.0) % MCH (27-31) pg Band Neuts % (Manual) (0-2.0) % Lymphocytes % (Manual) (20-51) % Immature Granulocytes (0-1) Neutrophils # (Manual) (1.3-6.0) K/mm3 Lymphocytes # (Manual) (1.5-3.5) k/mm3 pCO2 30.9 L (35.0-48.0) mmHg pO2 56.1 L (83.0-108.0) mmHg ABG pH 7.46 H (7.35-7.45) ABG O2 Sat (Measured) 91.0 L (94.0-98.0) % Random Glucose (70-110) mg/dL Lactic Acid, Venous 2.1 H 2.5 H* (0.4-2.0) mmol/L ALT (19-67) U/L Albumin (3.4-5.0) gm/dl Lipase (73-393) U/L Urine Glucose (UA) (NEGATIVE) mg/dL Urine Blood (NEGATIVE) /ul Laboratory Results WBC 17.1 K/mm3 (4.0-10.5) H 08/12/20 04:15 RBC 4.25 M/mm3 (4.7-6.0) L 08/12/20 04:15 Hgb 13.2 gm/dL (13.5-18.0) L 08/12/20 04:15 Hct 40.7 % (42.0-52.0) L 08/12/20 04:15 MCV 95.8 fl (78-100) 08/12/20 04:15 MCH 31.1 pg (27-31) H 08/12/20 04:15 MCHC 32.4 g/dl (32-36) 08/12/20 04:15 RDW 13.2 % (11.5-14.0) 08/12/20 04:15 Plt Count 215 K/mm3 (150-450) 08/12/20 04:15 MPV 10.7 fl (8-11.3) 08/12/20 04:15 Neutrophils % (Manual) 71 % (42-75) 08/12/20 04:15 Band Neuts % (Manual) 14 % (0-2.0) H 08/12/20 04:15 Lymphocytes % (Manual) 6 % (20-51) L 08/12/20 04:15 Monocytes % (Manual) 5 % (0-9) 08/12/20 04:15 Immature Granulocytes 2 (0-1) H 08/12/20 04:15 Neutrophils # (Manual) 12.1 K/mm3 (1.3-6.0) H 08/12/20 04:15 Lymphocytes # (Manual) 1.0 k/mm3 (1.5-3.5) L 08/12/20 04:15 Monocytes # (Manual) 0.9 k/mm3 (0.0-1.0) 08/12/20 04:15 Atypic/Reactive Lymphs 2 % (0-2) 08/12/20 04:15 Toxic Granulation 1+ 08/12/20 04:15 Toxic Vacuolation 1+ 08/12/20 04:15 Dohle Bodies 1+ 08/12/20 04:15 pCO2 30.9 mmHg (35.0-48.0) L 08/12/20 05:00 pO2 56.1 mmHg (83.0-108.0) L 08/12/20 05:00 HCO3 21.3 mmol/L (21.0-28.0) 08/12/20 05:00 Total CO2 22.3 mmol/L (19.0-24.0) 08/12/20 05:00 Base Excess -1.5 mmol/L (-2.0-3.0) 08/12/20 05:00 ABG pH 7.46 (7.35-7.45) H 08/12/20 05:00 ABG O2 Sat (Measured) 91.0 % (94.0-98.0) L 08/12/20 05:00 Sodium 140 mmol/L (132-142) 08/12/20 04:15 Plasma Sodium 142 mmol/L (130-142) 08/12/20 04:15 Potassium 3.8 mmol/L (3.4-4.6) 08/12/20 04:15 Chloride 106 mmol/L (97-106) 08/12/20 04:15 Carbon Dioxide 25.6 mmol/L (24-32.6) 08/12/20 04:15 Anion Gap 12.2 mmol/L (6.8-13.8) 08/12/20 04:15 BUN 20 mg/dL (6-23) 08/12/20 04:15 Creatinine 1.01 mg/dL (0.4-1.4) 08/12/20 04:15 Est GFR (Non-Af Amer) 74 mL/min (60-130) 08/12/20 04:15 BUN/Creatinine Ratio 19.8 (9.0-21.6) 08/12/20 04:15 Random Glucose 213 mg/dL (70-110) H 08/12/20 04:15 Lactic Acid, Venous 2.5 mmol/L (0.4-2.0) H* 08/12/20 07:08 Calcium 8.3 mg/dL (7.9-10.9) 08/12/20 04:15 Calcium Adj for Albumin 8.9 mg/dL (8.4-10.2) 08/12/20 04:15 Total Bilirubin 0.7 mg/dL (0.0-1.1) 08/12/20 04:15 AST 13 U/L (0-48) 08/12/20 04:15 ALT 14 U/L (19-67) L 08/12/20 04:15 Alkaline Phosphatase 81 U/L (50-170) 08/12/20 04:15 Troponin I 0.017 ng/mL (0.00-0.10) 08/12/20 04:15 B-Natriuretic Peptide 570 pg/mL (5-650) 08/12/20 04:15 Total Protein 6.3 gm/dL (6.2-8.2) 08/12/20 04:15 Albumin 2.8 gm/dl (3.4-5.0) L 08/12/20 04:15 Lipase 37 U/L (73-393) L 08/12/20 04:15 Urine Color Yellow 08/12/20 04:15 Urine Appearance Clear (CLEAR) 08/12/20 04:15 Urine pH 6.0 pH (5.0-7.0) 08/12/20 04:15 Ur Specific [place] 1.020 SP.GR. (1.005-1.030) 08/12/20 04:15 Urine Protein Negative mg/dL (NEGATIVE) 08/12/20 04:15 Urine Glucose (UA) 250 mg/dL (NEGATIVE) H 08/12/20 04:15 Urine Ketones 5 mg/dL (NEGATIVE) 08/12/20 04:15 Urine Blood 5 /ul (NEGATIVE) H 08/12/20 04:15 Urine Nitrate Negative (NEGATIVE) 08/12/20 04:15 Urine Bilirubin Negative mg/dl (NEGATIVE) 08/12/20 04:15 Urine Urobilinogen Normal EU/dl (NORMAL) 08/12/20 04:15 Ur Leukocyte Esterase Negative /ul (NEGATIVE) 08/12/20 04:15 Urine RBC None seen /hpf (0-5) 08/12/20 04:15 Urine WBC None seen /hpf (0-5) 08/12/20 04:15 Ur Epithelial Cells None seen /hpf (0-5) 08/12/20 04:15 Urine Bacteria None seen (NONE) 08/12/20 04:15 Urine Culture Comments Culture to follow 08/12/20 04:15 SARS-CoV-2 (PCR) Not detected (NotDetected) 08/12/20 04:55 Assessment/Plan - Narrative Narrative: Patient called EMS for urinary retention and lower abdominal pain. On arriving to the ER, there were some concerning findings on chest x-ray, and he is requiring oxygen. Will treat for pneumonia, but will need to further investigate his lower abdominal pain. He had an elevated lactate, which has resolved with fluids. CT abdomen pelvis with oral and IV contrast pending. Plain films are of limited quality, but show a stool ball in his pelvis. There is a chance he may have obstipation causing his urinary retention. We will add stool softeners and Dulcolax suppository to use as needed. He does have tamsulo sin on his home medicine list, so prostatic hypertrophy could also be the source. 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 Will ask physical therapy to evaluate his mobility prior to discharge. He lives alone, and I have concerns about his safety at home. He has some rash in his groin, so he may not be fully caring for himself appropriately. - Assessment/Plan (1) Urinary retention Problem: Acute (2) Hypoxia Problem: Acute (3) Bilateral interstitial pneumonia Problem: Suspected (4) Hypertension Problem: Chronic (5) Polymyalgia rheumatica Problem: Chronic (6) History of DVT (deep vein thrombosis) Problem: Chronic
[2020-08-12] MEDS ORDERED: BISACODYL 10 MG SUPP.RECT RC PRN (13:28)
[2020-08-12] MEDS ORDERED: SENNOSIDES 8.6 MG TABLET PO PRN (13:28)
[2020-08-12] MEDS ORDERED: DIATRIZOATE MEGLUMINE, SODIUM 30 ML BTL PO ONE (13:30)
[2020-08-13] MEDS: LEVOFLOXACIN IN DEXTROSE 5 % 750 MG/150 ML BAG IV SCH (04:50)
[2020-08-13] MEDS: ACETAMINOPHEN 325 MG TABLET PO PRN (05:56)
[2020-08-13] MEDS: MONTELUKAST SODIUM 10 MG TABLET PO SCH (09:54)
[2020-08-13] MEDS: TAMSULOSIN HCL 0.4 MG CAP.SR.24H PO SCH (09:54)
[2020-08-13] MEDS: predniSONE 5 MG TABLET PO SCH (09:54)
[2020-08-13] MEDS: RIVAROXABAN 20 MG TABLET PO SCH (09:54)
[2020-08-13] MEDS: ASPIRIN 81 MG TAB.CHEW PO SCH (09:54)
--- OUTSIDE RECORDS SUMMARY | 2020-08-13 10:18 | XMS REPORT ---
CCDA 2.1 CCD Created on:August 15, 2020 Patient:Ashok Carrillo Sex:Male :1930 Author Care Team Providers Name Role Phone Rashaun Gaming Unavailable Unavailable Allergies and Adverse Reactions Date Identified Substance Type Reaction 03/21/2011 no known environmental Environmental allergies 03/21/2011 no known food allergies Food 03/21/2011 Darvocet-N 100 Medication vomiting 03/21/2011 PENICILLINS Medication hives Assessments Allergic rhinitis, ICD9 : 477.0, ICD10 : J30.1Asthma, mild persistent, ICD9 : 493.90, ICD10 : J45.30Back pain, ICD9 : 724.5Back pain, ICD9 : 724.5, ICD10 : M54.9Benign prostatic hyperplasia with lower urinary tract symptoms, ICD9 : 600.01, ICD10 : N40.1Cellulitis and abscess of forearm, ICD9 : 682.3Cellulitis Improving, ICD9 : 682.9Cerumen impaction, ICD9 : 380.4, ICD10 : H61.20Chest Pain -Atypical, ICD9 : 786.50CHF, ICD9 : 428.0, ICD10 : I50.9Dehydration, ICD9 : 276.51, ICD10 : E86.0DOE (dyspnea on exertion), ICD9 : 786.09, ICD10 : R06.09 Dyspnea with exertion, ICD9 : 786.09Edema, ICD9 : 782.3Edema, ICD9 : 782.3, ICD10 : R60.9Fatigue, ICD9 : 780.79Fatigue, ICD9 : 780.79, ICD10 : R53.83 Hyperglycemia, ICD9 : 790.29, ICD10 : R73.9Hypertension, ICD9 : 401.9 Hypertension, ICD9 : 401.9, ICD10 : I10Low Back pain, ICD9 : 724.2, ICD10 : M54.5Lymphadenitis, ICD9 : 289.3Moderate Severe BPH, ICD9 : 600.00Other obstructive and reflux uropathy, ICD9 : 600.01, ICD10 : N13.8PMR (polymyalgia rheumatica), ICD9 : 725, ICD10 : M35.3PSA screening, ICD9 : V76.44Rash, ICD9 : 782.1Screening for Cardiovascular(including Lipids), ICD9 : V81.2, ICD10 : Z13.6 Screening for Lipids, ICD9 : V77.91Skin lesion, ICD9 : 709.9, ICD10 : L98.9 Tachycardia, ICD9 : 785.0Tachycardia, ICD9 : 785.0, ICD10 : R00.0Temporal pain, ICD9 : 784.0, ICD10 : C78Ezdibybgry Neuralgia, ICD9 : 350.1Trigeminal neuralgia, ICD9 : 350.1, ICD10 : G50.0Vasculitis, ICD9 : 447.6, ICD10 : I77.6Weakness & Fatigue, ICD9 : 780.79 Encounters Encounter Reason Provider(s) Location(s) Diagnosis Date Office Visit [facility] Amberly [facility] Hype rtension 12/01/2017 [facility] Tachycar destini 9:47 AM Surgeons Office Visit [facility] BPH with urinary obstruction 06/30/2017 [facility] Fatigue 2:44 PM Surgeons PMR (rafael ymyalgia rheumatica) [facility] Comm 06/25/2017 [facility] - OP 3:58 PM Office Visit [facility] Back pain 06/05/2017 [facility] Hyperten daina 10:45 AM Surgeons CHF Edema Fatigue MAIER (dys pnea on exertion) Office Visit [facility] Thanh rgic rhinitis 04/06/2017 [facility] Asthma, mild persistent 7:16 AM Surgeons Fatigue Screenin g for Cardiovascular(including Lipids) Back vinicio n Trigemin al neuralgia BPH with urinary obstruction Cerumen impaction Skin les ion Office Visit [facility] Trigeminal neuralgia 04/25/2016 [facility] Vasculit is 7:19 AM Surgeons Dehydrat ion Temporal pain Office Visit [facility] 01/03/2015 [facility] Low Back pain 7:20 AM Surgeons Office Visit [facility] Rashaun Amberly [facility] 12/05/2014 [facility] Low Back pain 12:59 PM Surgeons Office Visit [facility] Rodney Amberly [facility] Trigeminal Neuralgia 05/29/2014 [facility] Hyperten daina 3:31 PM Surgeons Office Visit [facility] Rashaun Amberly [facility] 01/23/2014 [facility] Chest Pain -Atypical 1:58 PM Surgeons Office Visit [facility] Rashaun Amberly [facility] Fati will 12/21/2013 [facility] Bre enriquez for Lipids 9:23 AM Surgeons Dyspnea with exertion Tachycar destini Lymphade nitis Office Visit [place] Rashaun Amberly [facility] Moderate Severe BPH 02/15/2013 Phys[facility] Cellulit is Improving 9:22 AM Surgeons Fatigue Office Visit [facility] Rodney Amberly [facility] PSA screening 02/02/2013 Physicians & Cellulit is and abscess of forearm 9:54 AM Surgeons Rash Weakness & Fatigue Edema Office Visit [facility] 03/21/2011 Physicians & 7:48 AM Surgeons Office Visit [facility] Gaming [facility] 07/25/2009 Physicians & 9:51 AM Surgeons Office Visit [facility] Gaming [facility] 07/11/2009 Physicians & 10:18 AM Surgeons Office Visit [place] Gaming [facility] 04/12/2009 Physicians & 11:07 AM Surgeons Office Visit [place] Rashaun Amberly [facility] 12/19/2008 Physicians & 10:05 AM Surgeons Office Visit [place] Rashaun Amberly [facility] 12/07/2008 Physicians & 10:03 AM Surgeons Office Visit [place] Gaming [facility] 11/30/2008 Physicians & 1:06 PM Surgeons Office Visit Astrid Montes [facility] 07/15/2007 ZZFrancis Physicians & 2:31 PM Surgeons Family History Relationship Diagnosis Age At Onset Relative No family hx reported Unknown History of Past Illness Name Type Status Date Trigeminal neuralgia Diagnosis Unknown Seizures Diagnosis Unknown BPH with urinary Diagnosis Unknown obstruction Fatigue Diagnosis Unknown Hypertension Diagnosis Unknown Polio Diagnosis Unknown Back pain Diagnosis Unknown 12/14/2014 Macular degeneration Diagnosis Unknown Immunizations Vaccine Date Status Dose # Notes Influenza 1949 Completed 1 Influenza 06/08/2012 Completed 2 02/02/13 pt received 2 bg Tetanus Toxoid 02/02/2013 Completed 1 02/02/13 pt u nsure bg Influenza 12/05/2014 Completed 3 Pneumonia 13 or 23 12/05/2014 Completed 1 Influenza 04/06/2017 Completed 1 fall 2015 Influenza 06/30/2017 Completed 2 states received 06/26/17 in hospital Instructions wash any and all items that may have had contact with offending substanceAvoid contact with offending substance(s).Cool or cold water compresses for 20-30 minutes 5-6 times dailyPrecautions given for use of IM / oral and topical steroidsCall or seek medical attention if condition worsens or does not improve Follow up needed - with amberly for "new pt" re-establishment appt set up by [facility] Handouts were providedIce to area prn.Heat to area prn.Drink minimum of 64 oz. of water per day, cut out all sodas, especially diet.Stay active but don't over do it.Ice to area prn.Heat to area prn.Drink minimum of 64 oz. of water per day, cut out all sodas, especially diet.Stay active but don't over do it.Call or return if symptoms worsen or persistRemain on same medications except as changed or added.MRI will be ordered of lower back.Call or return if symptoms worsen or persistRemain on same medications except as changed or added.Sed rate will be performed today.Pt. advised to push water intake - 64 oz daily.Remain on same medications except as changed or added.40 minutes spent with patient with > 50% of time in face to face counselling/coordinating care.labs, CXR, DDX and where we go from here all discussed with patient and .Advised him to keep appt. with key bed installer for now.Patient advised to exercise regularlyRemain on same medications except as changed or added.[facility] Follow Up25 minutes spent with patient with > 50% of time in face to face counselling/coordinating care.Patient advised to exercise regularly Medications Medication Directions Start Date End Date Status carbamazepine 200 mg Suspend ed oral tablet take 1 tablet (200 mg) by oral route every 8 hours Calcium 600 600 mg Active (1,500 mg) oral tablet take 2 tablets by oral route daily multivitamin Oral Active Tablet take 1 tablet by oral route daily aspirin 81 mg oral Active tablet,delayed release take 1 tablet (81 (DR/EC) mg) by oral route once daily Keflex 500 mg oral 02/02/2013 02/02/2013 Completed capsule take 1 capsule (500 mg) by oral route every 12 hours for 10 days prednisone 50 mg oral 02/02/2013 02/02/2013 Comple toya tablet take 1 tablet (50 mg) by oral route once daily for 7 days triamcinolone 02/02/2013 02/02/2013 Suspended acetonide 0.1 % apply a thin layer topical cream to the affected area(s) by topical route 2 times per day mupirocin 2 % topical 02/02/2013 02/02/2013 Suspen ded ointment apply a small amount to the affected area by topical route 3 times per day Flomax 0.4 mg oral 02/15/2013 02/15/2013 Aborted capsule,extended take 1 capsule (0.4 release 24hr mg) by oral route once daily 1/2 hour following the same meal each day for 30 days Flomax 0.4 mg oral 02/15/2013 12/21/2013 Suspended capsule,extended take 1 capsule (0.4 release 24hr mg) by oral route once daily 1/2 hour following the same meal each day clindamycin HCl 300 mg 12/21/2013 12/21/2013 Compl eted oral capsule take 1 capsule (300 mg) by oral route 2 times per day for 10 days hydromorphone 2 mg Completed oral tablet take 1 tablet (2 mg) by oral route Q3 hrs prn ibuprofen 800 mg oral Comple toya tablet take 1 tablet (800 mg) by oral route 3 times per day with food carbamazepine 200 mg Aborted oral tablet take 1 tablet (200 mg) by oral route every 12 hours carbamazepine 200 mg 05/29/2014 05/29/2014 Aborted oral tablet take 1 tablet (200 mg) by oral route every 12 hours for 30 days carbamazepine 200 mg 05/29/2014 05/29/2014 Suspend ed oral tablet take 1 tablet (200 mg) by oral route every 12 hours for 90 days prednisone 10 mg oral 06/02/2014 12/05/2014 Comple toya tablet Take 6 tabs daily x 48 hrs. then decrease by 10mg Q48. Topamax 25 mg oral 06/02/2014 04/25/2016 Suspended tablet take 2 tablets (50 mg) by oral route 2 times per day in the morning and evening acyclovir 800 mg oral 06/02/2014 12/05/2014 Comple toya tablet take 1 tablet (800 mg) by oral route 5 times per day for 7 days Zanaflex 4 mg oral 12/05/2014 12/05/2014 Suspended capsule take 1 capsule by oral route once a day (at bedtime) for 30 days Zanaflex 4 mg oral 12/05/2014 04/25/2016 Suspended tablet take 1 tablet (4 mg) by oral route at hs prednisone 10 mg oral 01/03/2015 01/03/2015 Comple toya tablet 6 tabs Po x 48 then decrease by 10mg Q48 naproxen 500 mg oral 09/25/2016 12/24/2016 Aborted tablet take 1 tablet (500 mg) by oral route every 12 hours with food for 30 days Ocuvite [id number] Active bh-obdt-cu-mg oral take 1 capsule by capsule oral route daily montelukast 10 mg oral 04/06/2017 04/06/2017 Suspe nded tablet take 1 tablet (10 mg) by oral route once daily in the evening for 30 days tamsulosin 0.4 mg oral 04/06/2017 04/06/2017 Suspe nded capsule,extended take 1 capsule (0.4 release 24hr mg) by oral route once daily 1/2 hour following the same meal each day for 30 days naproxen 500 mg oral 04/06/2017 04/06/2017 Complet ed tablet take 1 tablet (500 mg) by oral route every 12 hours with food for 30 days metformin 500 mg oral 04/07/2017 06/05/2017 Suspen ded tablet take 1 tablet by oral route daily Bactrim DS 800-160 mg 06/05/2017 06/05/2017 Comple toya oral tablet take 1 tablet by oral route every 12 hours for 14 days montelukast 10 mg oral 10/21/2017 Activ e tablet take 1 tablet (10 mg) by oral route once daily in the evening tamsulosin 0.4 mg oral 10/21/2017 Activ e capsule,extended take 1 capsule (0.4 release 24hr mg) by oral route once daily 1/2 hour following the same meal each day metoprolol succinate 12/01/2017 12/01/2017 Active 25 mg oral tablet take 1 tablet by extended release 24 hr oral route once a day (in the evening) for 90 days prednisone 5 mg oral 12/11/2017 Active tablet take 1 tablet (5 mg) by oral route once daily for 30 days Payers Plan Name Date Medicare 07/08/1997 [employer] 07/08/2011 Treatment plan Planned Care Start Date [facility] 01/10/2015 Sick Visit 07/15/2007 Re-check 11/30/2008 Re-check 12/07/2008 Re-check 12/19/2008 Re-check 04/12/2009 Sick Visit 07/11/2009 Re-check 07/25/2009 Physical 03/21/2011 Walk In 02/02/2013 Re-check 02/15/2013 Sick Visit 12/21/2013 Sick Visit 01/23/2014 Keflex 500 mg Oral capsule take 1 capsule (500 mg) by oral route every 12 hours for 10 days prednisone 50 mg Oral tablet take 1 tablet (50 mg) by oral route once daily for 7 days triamcinolone acetonide 0.1 % Topical Cream apply a th in layer to the affected area(s) by topical route 2 times per day mupirocin 2 % Topical Ointment apply a small amount to the affected area by topical route 3 times per day Flomax 0.4 mg Oral capsule,extended release 24hr take 1 capsule (0.4 mg) by oral route once daily 1/2 hour following the same meal each day Sick Visit 05/29/2014 Sick Visit 12/05/2014 Sick Visit 01/03/2015 clindamycin HCl 300 mg oral capsule take 1 capsule (30 0 mg) by oral route 2 times per day for 10 days Sick Visit 04/25/2016 carbamazepine 200 mg oral tablet take 1 tablet (200 mg ) by oral route every 12 hours for 90 days prednisone 10 mg oral tablet Take 6 tabs daily x 48 hr s. then decrease by 10mg Q48. Topamax 25 mg oral tablet take 2 tablets (50 mg) by or al route 2 times per day in the morning and evening Re-check 04/06/2017 Annual Wellness Visit 07/10/2017 Sick Visit 06/05/2017 Zanaflex 4 mg oral capsule take [address] oral rout e once a day (at bedtime) for 30 days Transitional Care Management 06/30/2017 prednisone 10 mg oral tablet 6 tabs Po x 48 then decre ase by 10mg Q48 Re-check 12/01/2017 montelukast 10 mg oral tablet take 1 tablet (10 mg) by oral route once daily in the evening for 30 days tamsulosin 0.4 mg oral capsule,extended release 24hr t bar 1 capsule (0.4 mg) by oral route once daily 1/2 hour following the same meal each day for 30 days naproxen 500 mg oral tablet take 1 tablet (500 mg) by oral route every 12 hours with food for 30 days metformin 500 mg oral tablet take 1 tablet by oral rou te daily Bactrim DS 800-160 mg oral tablet take 1 tablet by ora l route every 12 hours for 14 days montelukast 10 mg oral tablet take 1 tablet (10 mg) by oral route once daily in the evening tamsulosin 0.4 mg oral capsule,extended release 24hr t bar 1 capsule (0.4 mg) by oral route once daily 1/2 hour following the same meal each day metoprolol succinate 25 mg oral tablet extended releas e 24 hr take 1 tablet by oral route once a day (in the even ing) for 90 days prednisone 5 mg oral tablet take 1 tablet (5 mg) by or al route once daily for 30 days X-ray of lumbar spine four or more views including obl ique 01/03/2015 views Dermatology Consultation 04/06/2017 Spirometry with bronchodilator 06/11/2017 DuoNeb 06/05/2017 DuoNeb 06/05/2017 wash any and all items that may have had contact with offending substance Avoid contact with offending substance(s). Cool or cold water compresses for 20-30 minutes 5-6 ti mes daily Precautions given for use of IM / oral and topical steroids Call or seek medical attention if condition worsens or does not improve Follow up needed - with amberly for "new pt" re-establishment appt set up by [facility] Handouts were provided Ice to area prn. Heat to area prn. Drink minimum of 64 oz. of water per day, cut out all sodas, especially diet. Stay active but don't over do it. Ice to area prn. Heat to area prn. Drink minimum of 64 oz. of water per day, cut out all sodas, especially diet. Stay active but don't over do it. Call or return if symptoms worsen or persist Remain on same medications except as changed or added. MRI will be ordered of lower back. Call or return if symptoms worsen or persist Remain on same medications except as changed or added. Sed rate will be performed today. Pt. advised to push water intake - 64 oz daily. Remain on same medications except as changed or added. 40 minutes spent with patient with > 50% of time in fa ce to face counselling/coordinating care. labs, CXR, DDX and where we go from here all discussed with patient and . Advised him to keep appt. with key bed installer for now. Patient advised to exercise regularly Remain on same medications except as changed or added. [facility] Follow Up 25 minutes spent with patient with > 50% of time in fa ce to face counselling/coordinating care. Patient advised to exercise regularly Problems Name Type Status Onset Resolution Author Trigeminal Problem Active ZZFrancis neuralgia BPH with urinary Problem Active ZZFranci s obstruction Hypertension Problem Active ZZFrancis Back pain Problem Active 12/14/2014 Amberly Procedures Procedure Date cmp, lipids, tsh, cbc results 03/21/2011 CBC (H&H, platelets, WBC {automated}) 02/02/2013 Comprehensive metabolic panel This panel must include the 02/02/2013 following: Albumin (79982), Bilirubin, total (06959), Calcium, total (39894), Carbon dioxide (bicarbonate) (73908), Chloride (86655), Creatinine (69081), Glucose (24706), Phosphatase, alkaline (53981), Potassium (841 32), Protein, total (53818), Sodium (44026), Transferase, alanine amino (ALT) (SGPT) (93826), Transferase, aspar miller amino (AST) (SGOT) (78289), Urea nitrogen (BUN) (31489 ) Hepatic Function: LFT's 02/02/2013 PSA 02/02/2013 Thyroid Stimulating Hormone 02/02/2013 Dexamethasone 8 Mg (Decadron) (RB) administered IM in pt's 02/02/2013 rt hip. Dexamethasone Lot # [id number] Exp 11/18. Pt aske d to wait 20 min. Vitals: BP 122/78 HR 86 RR 16 SPO2 96% T 36.7. Pt tolerated well. NUPUR Moss ERX--At least one prescription created during the 02/02/2013 encounter was gener Phone communication 02/15/2013 Free T4 12/21/2013 Lipid Profile 12/21/2013 X-ray of lumbar spine four or more views including obl ique 12/05/2014 views Physical Therapy Evaluate and Treat 12/11/2014 Medication Refill 12/14/2014 MRI lumbar spine 01/08/2015 MRI lumbar spine 01/08/2015 MRI lumbar spine 01/08/2015 Medication Refill 04/13/2015 Medication Refill 06/12/2015 Medication Refill 03/27/2016 Sed rate, automated 04/25/2016 CBC 04/06/2017 Hgb A1c 04/06/2017 BNP 06/05/2017 CXR - PA and Lateral 06/05/2017 Blood glucose measurement 06/05/2017 Phone Communication 06/29/2017 Medication Refill 10/21/2017 Medication Refill 12/11/2017 Phone Communication 01/20/2018 Colonoscopy Unknown Cataract surgery Unknown Results Complete blood count (CBC) with differen tial count Result Type Result Value Relevant Interpretation Date Reference Range WBC # Bld Auto 6.20 K/MM3 4.0-10.5 12/21/2013 RBC # Bld Auto 4.630 M/MM3 4.7-6.0 L 12/21/2013 Hgb Bld-mCnc 14.50 g/dL 13.5-18.0 12/21/2013 Hct Fr Bld Auto 42.50 % 42.0-52.0 12/21/2013 MCV RBC Qn Auto 91.90 fL 78-100 12/21/2013 MCH RBC Qn Auto 31.30 pg 27-31 H 12/21/2013 MCHC RBC Auto-mCnc 34.0 g/dL 32-36 12/21/2013 RDW RBC Auto-Rto 13.20 % 11.5-14.0 12/21/2013 Platelet # Bld Auto 227.0 K/MM3 150-450 4 PMV Bld Qn 9.30 fL 6.0-9.5 12/21/2013 Lm-Falguni Neutrophil % 58.80 % 42-75.0 12/21/2013 Lymphocytes Fr Bld 32.30 % 20-51 12/21/2013 Auto Monos+Macros Fr Fld 6.30 % 0.0-9 4 Manual Eos % 2.0 % 0.0-3.0 12/21/2013 Basophils Fr Bld 0.60 % 0.0-1.0 12/21/2013 Auto Neutrophils Fr Bld % 1.3-6.0 12/21/2013 Auto Lymphocytes # Bld 2.0 x10E3/uL 1.5-3.5 12/21/2013 Auto Monocytes # Bld Auto 0.40 x10E3/uL 0.0-1.0 014 Eosinophil # Bld 0.10 x10E3/uL 0.0-0.7 12/21/2013 Auto Basophils # Bld Auto 0.0 x10E3/uL 0.0-0.1 12/22/19 14 Comprehensive metabolic panel Result Type Result Value Relevant Reference Interpretation Date Range Glucose SerPl-mCnc 116.0 mg/dL 70-110 H 12/21/2013 BUN SerPl-mCnc 18.0 mg/dL 6-23 12/21/2013 Creat SerPl-mCnc 1.0 mg/dL 0.4-1.4 12/21/2013 Pred GFR.non Black 76.0 mL/min 60-130 12/21/2013 SerPl MDRD-vRate BUN/creat (calc) 9.0-21.6 12/21/2013 SerPl-mRto Sodium SerPl-sCnc 143.0 mmol/L 132-142 H 12/21/2013 CORRECTED SODIUM 143 130-142 H 12/21/2013 Potassium 3.90 mmol/L 3.4-4.6 12/21/2013 SerPl-sCnc CHLOR 106.0 mmol/L 97-106 12/21/2013 CO2 SerPl-sCnc 26.70 mmol/L 24-32.6 12/21/2013 Anion Gap 14.20 mmol/L 6.8-13.8 H 12/21/2013 SerPl-sCnc Calcium SerPl-mCnc 8.60 mg/dL 7.9-10.9 12/21/2013 Corrected Calcium 8.60 mg/dL 8.4-10.2 12/21/2013 Prot SerPl-mCnc 7.10 g/dL 6.2-8.2 12/21/2013 Albumin SerPl 3.60 g/dL 3.4-5.0 12/21/2013 Elph-mCnc Bilirub SerPl-mCnc 0.40 mg/dL 0.0-1.1 12/21/2013 ALT SerPl-cCnc IU/L 19-67 12/21/2013 ALP SerPl-cCnc IU/L 50-170 12/21/2013 AST SerPl-cCnc IU/L 0-48 12/21/2013 Lipid panel Result Type Result Value Relevant Reference Interpretation Date Range Cholest 177.0 mg/dL 0-200 12/21/2013 SerPl-mCnc Trigl SerPl-mCnc 186.0 mg/dL 30-200 12/21/2013 LDLc SerPl-mCnc 104.0 mg/dL 70-130 12/21/2013 HDLc SerPl-mCnc 36.0 mg/dL 40-60 L 12/21/2013 VLDLc SerPl 37.0 mg/dL 5-40 12/21/2013 Calc-mCnc Risk Ratio 4.9 3.3-5.0 12/21/2013 Comment: Free thyroxine (FT4) measurement Result Type Result Value Relevant Reference Interpretation Date Range T4 Free 1.050 ng/dL 0.76-1.46 12/21/2013 SerPl-mCnc Thyroid stimulating hormone (TSH) measur ement Result Type Result Value Relevant Reference Interpretation Date Range TSH SerPl 2.9730 uIU/mL 0.358-3.74 12/21/2013 DL=0.01 mU/L-aCnc Automated erythrocyte sedimentation rate (ESR) Result Type Result Value Relevant Reference Interpretation Date Range ESR Bld Qn 27.0 mm/hr 0-10 H 04/25/2016 [facility] Comprehensive metabolic panel Result Type Result Value Relevant Reference Interpretation Date Range Glucose SerPl-mCnc 145.0 mg/dL 70-110 H 04/25/2016 BUN SerPl-mCnc 22.0 mg/dL 6-23 04/25/2016 Creat SerPl-mCnc 0.920 mg/dL 0.4-1.4 04/25/2016 Pred GFR.non Black 84.0 mL/min 60-130 04/25/2016 SerPl MDRD-vRate BUN/creat (calc) 9.0-21.6 H 04/25/2016 SerPl-mRto Sodium SerPl-sCnc 145.0 mmol/L 132-142 H 04/25/2016 CORRECTED SODIUM 146 130-142 H 04/25/2016 Potassium 3.70 mmol/L 3.4-4.6 04/25/2016 SerPl-sCnc CHLOR 110.0 mmol/L 97-106 H 04/25/2016 CO2 SerPl-sCnc 26.0 mmol/L 24-32.6 04/25/2016 Anion Gap 12.70 mmol/L 6.8-13.8 04/25/2016 SerPl-sCnc Calcium SerPl-mCnc 8.70 mg/dL 7.9-10.9 04/25/2016 Corrected Calcium 8.80 mg/dL 8.4-10.2 04/25/2016 Prot SerPl-mCnc 7.0 g/dL 6.2-8.2 04/25/2016 Albumin SerPl 3.50 g/dL 3.4-5.0 04/25/2016 Elph-mCnc Bilirub SerPl-mCnc 0.60 mg/dL 0.0-1.1 04/25/2016 ALT SerPl-cCnc IU/L 19-67 04/25/2016 ALP SerPl-cCnc IU/L 50-170 04/25/2016 AST SerPl-cCnc IU/L 0-48 04/25/2016 Comprehensive metabolic panel Result Type Result Value Relevant Reference Interpretation Date Range Glucose SerPl-mCnc 160.0 mg/dL 70-110 H 04/06/2017 BUN SerPl-mCnc 19.0 mg/dL 6-23 04/06/2017 Creat SerPl-mCnc 0.930 mg/dL 0.4-1.4 04/06/2017 Pred GFR.non Black 82.0 mL/min 60-130 04/06/2017 SerPl MDRD-vRate BUN/creat (calc) 9.0-21.6 04/06/2017 SerPl-mRto Sodium SerPl-sCnc 143.0 mmol/L 132-142 H 04/06/2017 CORRECTED SODIUM 144 130-142 H 04/06/2017 Potassium 3.90 mmol/L 3.4-4.6 04/06/2017 SerPl-sCnc CHLOR 107.0 mmol/L 97-106 H 04/06/2017 CO2 SerPl-sCnc 27.10 mmol/L 24-32.6 04/06/2017 Anion Gap 12.80 mmol/L 6.8-13.8 04/06/2017 SerPl-sCnc Calcium SerPl-mCnc 8.90 mg/dL 7.9-10.9 04/06/2017 Corrected Calcium 9.0 mg/dL 8.4-10.2 04/06/2017 Prot SerPl-mCnc 7.40 g/dL 6.2-8.2 04/06/2017 Albumin SerPl 3.50 g/dL 3.4-5.0 04/06/2017 Elph-mCnc Bilirub SerPl-mCnc 0.50 mg/dL 0.0-1.1 04/06/2017 ALT SerPl-cCnc IU/L 19-67 04/06/2017 ALP SerPl-cCnc IU/L 50-170 04/06/2017 AST SerPl-cCnc IU/L 0-48 04/06/2017 Lipid panel Result Type Result Value Relevant Reference Interpretation Date Range Cholest 189.0 mg/dL 0-200 04/06/2017 SerPl-mCnc Trigl SerPl-mCnc 160.0 mg/dL 30-200 04/06/2017 LDLc SerPl-mCnc 119.0 mg/dL 70-130 04/06/2017 HDLc SerPl-mCnc 38.0 mg/dL 40-60 L 04/06/2017 VLDLc SerPl 32.0 mg/dL 5-40 04/06/2017 Calc-mCnc Risk Ratio 4.9 3.3-5.0 04/06/2017 Comment: Complete blood count (CBC) Result Type Result Value Relevant Interpretation Date Reference Range Glucose SerPl-mCnc 160.0 mg/dL 70-110 H 04/06/2017 BUN SerPl-mCnc 19.0 mg/dL 6-23 04/06/2017 Creat SerPl-mCnc 0.930 mg/dL 0.4-1.4 04/06/2017 Pred GFR.non Black 82.0 mL/min 60-130 04/06/2017 SerPl MDRD-vRate BUN/creat SerPl-mRto (calc) 9.0-21.6 04/06/20 17 Sodium SerPl-sCnc 143.0 mmol/L 132-142 H 04/06/2017 CORRECTED SODIUM 144 130-142 H 04/06/2017 Potassium SerPl-sCnc 3.90 mmol/L 3.4-4.6 04/06/20 17 CHLOR 107.0 mmol/L 97-106 H 04/06/2017 CO2 SerPl-sCnc 27.10 mmol/L 24-32.6 04/06/2017 Anion Gap SerPl-sCnc 12.80 mmol/L 6.8-13.8 04/06/20 17 Calcium SerPl-mCnc 8.90 mg/dL 7.9-10.9 04/06/2017 Corrected Calcium 9.0 mg/dL 8.4-10.2 04/06/2017 Prot SerPl-mCnc 7.40 g/dL 6.2-8.2 04/06/2017 Albumin SerPl 3.50 g/dL 3.4-5.0 04/06/2017 Elph-mCnc Bilirub SerPl-mCnc 0.50 mg/dL 0.0-1.1 04/06/2017 ALT SerPl-cCnc IU/L 19-67 04/06/2017 ALP SerPl-cCnc IU/L 50-170 04/06/2017 AST SerPl-cCnc IU/L 0-48 04/06/2017 Cholest SerPl-mCnc 189.0 mg/dL 0-200 04/06/2017 Trigl SerPl-mCnc 160.0 mg/dL 30-200 04/06/2017 LDLc SerPl-mCnc 119.0 mg/dL 70-130 04/06/2017 HDLc SerPl-mCnc 38.0 mg/dL 40-60 L 04/06/2017 VLDLc SerPl 32.0 mg/dL 5-40 04/06/2017 Calc-mCnc Risk Ratio Comment: 4.9 3.3-5.0 7 WBC # Bld Auto 6.50 K/MM3 4.0-10.5 04/06/2017 RBC # Bld Auto 4.660 M/MM3 4.7-6.0 L 04/06/2017 Hgb Bld-mCnc 14.60 g/dL 13.5-18.0 04/06/2017 Hct Fr Bld Auto 43.10 % 42.0-52.0 04/06/2017 MCV RBC Qn Auto 92.50 fL 78-100 04/06/2017 MCH RBC Qn Auto 31.30 pg 27-31 H 04/06/2017 MCHC RBC Auto-mCnc 33.90 g/dL 32-36 04/06/2017 RDW RBC Auto-Rto 13.0 % 11.5-14.0 04/06/2017 Platelet # Bld Auto 264.0 K/MM3 150-450 7 PMV Bld Qn 11.70 fL 6.0-9.5 H 04/06/2017 Lm-Falguni Neutrophil % 57.10 % 42-75.0 04/06/2017 Lymphocytes Fr Bld 31.60 % 20-51 04/06/2017 Auto Monos+Macros Fr Fld 6.30 % 0.0-9 7 Manual Eos % 3.60 % 0.0-3.0 H 04/06/2017 Basophils Fr Bld 0.90 % 0.0-1.0 04/06/2017 Auto Immature Gran % 0.50 0.001-0.429 H 04/06/2017 Neutrophils Fr Bld % 1.3-6.0 04/06/2017 Auto Lymphocytes # Bld 2.0 x10E3/uL 1.5-3.5 04/06/2017 Auto Monocytes # Bld Auto 0.40 x10E3/uL 0.0-1.0 017 Eosinophil # Bld 0.20 x10E3/uL 0.0-0.7 04/06/2017 Auto Basophils # Bld Auto 0.10 x10E3/uL 0.0-0.1 017 Immature Gran # 0.03 0.000-0.0310 04/06/2017 NRBC 0.0 0-1 04/06/2017 Thyroid stimulating hormone (TSH) measur ement Result Type Result Value Relevant Reference Interpretation Date Range TSH SerPl 3.30 uIU/mL 0.358-3.74 04/06/2017 DL=0.01 mU/L-aCnc Hemoglobin A1c measurement Result Type Result Value Relevant Reference Interpretation Date Range Hgb A1c Fr Bld 6.10 % 4.00-6.0 H 04/06/2017 Mean Blood Gluc 117.0 mg/dL 04/06/2017 Blood glucose measurement Result Type Result Value Relevant Reference Interpretation Date Range Glucose 176.0 mg/dL 70 - 110 06/05/2017 SerPl-mCnc Complete blood count (CBC) Result Type Result Value Relevant Interpretation Date Reference Range WBC # Bld Auto 7.10 K/MM3 4.0-10.5 06/05/2017 RBC # Bld Auto 4.580 M/MM3 4.7-6.0 L 06/05/2017 Hgb Bld-mCnc 14.30 g/dL 13.5-18.0 06/05/2017 Hct Fr Bld Auto 42.0 % 42.0-52.0 06/05/2017 MCV RBC Qn Auto 91.70 fL 78-100 06/05/2017 MCH RBC Qn Auto 31.20 pg 27-31 H 06/05/2017 MCHC RBC Auto-mCnc 34.0 g/dL 32-36 06/05/2017 RDW RBC Auto-Rto 12.70 % 11.5-14.0 06/05/2017 Platelet # Bld Auto 229.0 K/MM3 150-450 7 PMV Bld Qn 11.50 fL 6.0-9.5 H 06/05/2017 Lm-Falguni Neutrophil % 64.90 % 42-75.0 06/05/2017 Lymphocytes Fr Bld 25.40 % 20-51 06/05/2017 Auto Monos+Macros Fr Fld 7.40 % 0.0-9 7 Manual Eos % 1.30 % 0.0-3.0 06/05/2017 Basophils Fr Bld 0.70 % 0.0-1.0 06/05/2017 Auto Immature Gran % 0.30 0.001-0.429 06/05/2017 Neutrophils Fr Bld % 1.3-6.0 06/05/2017 Auto Lymphocytes # Bld 1.80 x10E3/uL 1.5-3.5 06/05/2017 Auto Monocytes # Bld Auto 0.50 x10E3/uL 0.0-1.0 017 Eosinophil # Bld 0.10 x10E3/uL 0.0-0.7 06/05/2017 Auto Basophils # Bld Auto 0.10 x10E3/uL 0.0-0.1 017 Immature Gran # 0.02 0.000-0.0310 06/05/2017 NRBC 0.0 0-1 06/05/2017 Comprehensive metabolic panel Result Type Result Value Relevant Reference Interpretation Date Range Glucose SerPl-mCnc 162.0 mg/dL 70-110 H 06/05/2017 BUN SerPl-mCnc 25.0 mg/dL 6-23 H 06/05/2017 Creat SerPl-mCnc 0.940 mg/dL 0.4-1.4 06/05/2017 Pred GFR.non Black 81.0 mL/min 60-130 06/05/2017 SerPl MDRD-vRate BUN/creat (calc) 9.0-21.6 H 06/05/2017 SerPl-mRto Sodium SerPl-sCnc 141.0 mmol/L 132-142 06/05/2017 CORRECTED SODIUM 142 130-142 06/05/2017 Potassium 4.0 mmol/L 3.4-4.6 06/05/2017 SerPl-sCnc CHLOR 106.0 mmol/L 97-106 06/05/2017 CO2 SerPl-sCnc 26.0 mmol/L 24-32.6 06/05/2017 Anion Gap 13.0 mmol/L 6.8-13.8 06/05/2017 SerPl-sCnc Calcium SerPl-mCnc 8.50 mg/dL 7.9-10.9 06/05/2017 Corrected Calcium 8.40 mg/dL 8.4-10.2 06/05/2017 Prot SerPl-mCnc 7.20 g/dL 6.2-8.2 06/05/2017 Albumin SerPl 3.70 g/dL 3.4-5.0 06/05/2017 Elph-mCnc Bilirub SerPl-mCnc 0.40 mg/dL 0.0-1.1 06/05/2017 ALT SerPl-cCnc IU/L 19-67 06/05/2017 ALP SerPl-cCnc IU/L 50-170 06/05/2017 AST SerPl-cCnc IU/L 0-48 06/05/2017 Thyroid stimulating hormone (TSH) measur ement Result Type Result Value Relevant Reference Interpretation Date Range TSH SerPl 2.6460 uIU/mL 0.358-3.74 06/05/2017 DL=0.01 mU/L-aCnc Atrial natriuretic factor (ANF) measurem ent Result Type Result Value Relevant Reference Interpretation Date Range N-TERMINAL PBNP 119.0 pg/mL 5-650 06/05/2017 Magnetic resonance imaging of lumbar spi ne Result Type Result Value Relevant Interpretation Date Reference Range Magnetic left lower back 01/08/2015 resonance imaging pain with radicular of lumbar spine sx down left leg to knee. positive SL on left. tender around L3. suspect nerve impingement from disc disease., 1445 avlpn Magnetic left lower back 01/08/2015 resonance imaging pain with radicular of lumbar spine sx down left leg to knee. positive SL on left. tender around L3. suspect nerve impingement from disc disease., 1445 avlpn Magnetic left lower back 01/08/2015 resonance imaging pain with radicular of lumbar spine sx down left leg to knee. positive SL on left. tender around L3. suspect nerve impingement from disc disease., 1445 avlpn X-ray of chest, PA and lateral views Result Type Result Value Relevant Reference Interpretation Date Range X-ray of chest, MAIER with LE edema 06/05/20 17 PA and lateral and rales 1/[address] way views up felisha. suspect CHF vs asthma vs. atypical vs. ? 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 abuse(Unknown) Alcohol Intake Alcohol(Current some day) Since 1 Unknown has Advanced Directives Since 05/29/2014 Unknown wears glasses Since 05/29/2014 Unknown lives with spouse Since 05/29/2014 Unknown Influenza Vaccine 2013 Received Since Elsewhere Unknown Pnuemovax, unconfirmed date Since 014 Unknown Influenza vaccine not received Since 05/09 Unknown wears dentures Since 05/29/2014 Unknown Glasses/Contacts Since 04/25/2016 Unknown Dentures Since 04/25/2016 Unknown No Hearing Aid Since 04/25/2016 Unknown Annual Wellness Visit Since 12/01/2017 Unknown Learns best by discussion Since 8 Unknown age-related learning barrier Since 2017 Current Smoking Status Never Smoked Vital Signs Date / 12/01/2017 06/30/2017 06/05/2017 06/05/2017 04/06/2017 6 01/03/2015 12/05/2014 05/29/2014 01/23/2014 12/21/2013 02/15/2013 02/02/2013 03/21/2011 07/25/2009 Time: 10:00 AM 2:58 PM 11:14 AM 10:50 AM 7:29 AM 7:31 AM 7:31 AM 1:13 PM 3:47 PM 2:07 PM 9:34 AM 9:36 AM 10:12 AM 9:26 AM 9:26 AM Blood 126.0 108.0 128.0 142.0 110.0 122.0 110.0 150.0 118.0 112.0 132. 0 138.0 154.0 160.0 Pressu mm[Hg] mm[Hg] mm[Hg] mm[Hg] mm[Hg] mm[Hg] mm[Hg] mm[Hg] mm[Hg] mm[Hg] mm[Hg] mm[Hg] mm[Hg] mm[Hg] re - Systol ic Blood 82.0 mm[Hg] 68.0 mm[Hg] 76.0 mm[Hg] 88.0 mm[Hg] 72.0 mm[ Hg] 80.0 mm[Hg] 62.0 mm[Hg] 90.0 mm[Hg] 72.0 mm[Hg] 76.0 mm[Hg] 72.0 mm[Hg] 76.0 mm[Hg] 94.0 mm[Hg] 92.0 mm[Hg] Pressu re - Diasto lic Body 30.36 kg/m2 30.60 kg/m2 30.90 kg/m2 30.79 kg/m2 29.93 kg /m2 28.78 kg/m2 29.05 kg/m2 29.69 kg/m2 29.42 kg/m2 29.02 kg/m2 30.04 kg/m2 29.56 kg/m2 28.73 kg/m2 Mass Index Body 2.46 m2 2.47 m2 2.48 m2 2.48 m2 2.44 m2 2.40 m2 2.41 m2 2.44 m 2 2.42 m2 2.41 m2 2.45 m2 2.43 m2 2.40 m2 Surfac e Area Heart 98.0 /min 101.0 /min 100.0 /min 103.0 /min 92.0 /min 91.0 /min 9 0.0 /min 88.0 /min 89.0 /min 84.0 /min 80.0 /min 85.0 /min 96.0 /min 79.0 /min 80.0 /min Rate Height 193.0 cm 193.0 cm 193.0 cm 193.0 cm 193.0 cm 193.0 cm 193.0 c m 193.0 cm 193.0 cm 193.0 cm 193.0 cm 193.0 cm 76.0 [in_i] Oxygen 97.0 % 94.0 % 97.0 % 94.0 % 94.0 % 95.0 % 96.0 % 99.0 % 95.0 % 98.0 % 95.0 % 96.0 % 94.0 % Satura tion Respir 18.0 /min 20.0 /min 22.0 /min 26.0 /min 20.0 /min 18.0 /min 18.0 /min 18.0 /min 18.0 /min 16.0 /min 16.0 /min 16.0 /min 18.0 /min atory Rate Weight 113.10 kg 114.0 kg 115.10 kg 114.70 kg 111.50 kg 107.20 kg 108.20 kg 110.60 kg 109.60 kg 108.10 kg 111.90 kg 110.10 kg 236.0 240.0 [lb_av] [lb_av] Temper 36.20 Kitty 36.70 Kitty 36.60 Kitty 36. 20 Kitty ature
[2020-08-13 11:16] LABS: Hematocrit 35.2 % (42.0-52.0); Hemoglobin 11.4 gm/dL (13.5-18.0); Mean Cell Volume 95.7 fl (78-100); Mean Corpuscular Hgb Conc 32.4 g/dl (32-36); Mean Platelet Volume 10.1 fl (8-11.3); Neutrophil # 10.5 K/mm3 (1.3-6.0); Neutrophil % 82.4 % (42-75.0); Platelet Count 171 K/mm3 (150-450); Red Blood Count 3.68 M/mm3 (4.7-6.0); Red Cell Distribution Width 13.4 % (11.5-14.0); White Blood Count 12.7 K/mm3 (4.0-10.5)
[2020-08-13 11:37] LABS: Albumin * 2.3 gm/dl (3.4-5.0); Anion Gap 8.2 mmol/L (6.8-13.8); Bilirubin, Total 0.5 mg/dL (0.0-1.1); Ca. Corrected For Albumin 9.2 mg/dL (8.4-10.2); Calcium * 8.2 mg/dL (7.9-10.9); Carbon Dioxide 27.6 mmol/L (24-32.6); Potassium 3.8 mmol/L (3.4-4.6); Total Protein 5.9 gm/dL (6.2-8.2)
--- NOTE | 2020-08-13 16:26 | PN ---
Subjective - Date and Time Seen Date: 08/13/20 Time: 09:30 Subjective Narrative: Ashok rested most of the day, was not participating in coversation or with PT. He had no concerns. He has been on oxygen since being 85% by EMS and placed on oxygen. Will attempt to wean off. Objective - Vitals Vitals: Last Vital Signs Temp 36.8 C 08/13/20 10:35 Pulse 83 08/13/20 10:35 Resp 17 08/13/20 10:35 BP 121/50 08/13/20 10:35 Pulse Ox 92 L 08/13/20 01:53 - Abnormal Lab Findings Abnormal Lab Findings: Abnormal Lab Results 08/13/20 08/13/20 Range/Units 11:11 11:11 WBC 12.7 H D (4.0-10.5) K/mm3 RBC 3.68 L (4.7-6.0) M/mm3 Hgb 11.4 L (13.5-18.0) gm/dL Hct 35.2 L (42.0-52.0) % Immature Gran % (Auto) 0.70 H (0.001-0.429) % Immature Gran # (Auto) 0.09 H (0.000-0.0310) K/mm3 Neutrophils % 82.4 H (42-75.0) % Lymphocytes % 10.4 L (20-51) % Neutrophils # 10.5 H (1.3-6.0) K/mm3 Lymphocytes # 1.33 L (1.5-3.5) k/mm3 Random Glucose 138 H D (70-110) mg/dL ALT 16 L (19-67) U/L Total Protein 5.9 L (6.2-8.2) gm/dL Albumin 2.3 L (3.4-5.0) gm/dl - Exam Constitutional: Present: Somnolent. Absent: Cooperative Respiratory: Present: lungs clear, normal breath sounds Cardiovascular/Chest: Present: regular rate, rhythm, no murmur Abdomen: Present: Normal bowel sounds, soft, nontender, nondistended Skin Exam: Present: normal color, warm/dry, no cyanosis Cauti Physician Documentation - Urinary Catheter Management Urethral (Marrero) Date of Insertion: 08/12/20 Time of Insertion: 03:59 Assessment/Plan Plan Narrative: WBC is still elevated at 12k, very weak and unable to participate with PT, will try again tomorrow. Still on oxygen, will attempt to wean off oxygen. Will continue levaquin. Will add cornet. Ashok has acute respiratory failure secondary to bilateral pneumonia. He is unable to be discharged due to to condition, elevated WBC, oxygen requirement. Will change his status to inpatient as he failed observation. - Problems/Diagnosis (1) Acute respiratory failure with hypoxia Problem: Acute (2) Bilateral interstitial pneumonia Problem: Suspected (3) Urinary retention Problem: Acute
[2020-08-14] MEDS: ACETAMINOPHEN 325 MG TABLET PO PRN (01:30)
[2020-08-14] MEDS: LEVOFLOXACIN IN DEXTROSE 5 % 750 MG/150 ML BAG IV SCH (05:08)
[2020-08-14 06:51] LABS: Albumin * 2.2 gm/dl (3.4-5.0); Anion Gap 9.4 mmol/L (6.8-13.8); BUN/Creatinine Ratio 23.6 (9.0-21.6); Bilirubin, Total 0.5 mg/dL (0.0-1.1); Ca. Corrected For Albumin 8.9 mg/dL (8.4-10.2); Calcium * 7.8 mg/dL (7.9-10.9); Carbon Dioxide 26.3 mmol/L (24-32.6); Potassium 3.7 mmol/L (3.4-4.6); Total Protein 5.9 gm/dL (6.2-8.2)
[2020-08-14 06:53] LABS: Hematocrit 36.1 % (42.0-52.0); Hemoglobin 11.5 gm/dL (13.5-18.0); Mean Corpuscular Hemoglobin 30.6 pg (27-31); Mean Corpuscular Hgb Conc 31.9 g/dl (32-36); Mean Platelet Volume 10.9 fl (8-11.3); Neutrophil # 7.6 K/mm3 (1.3-6.0); Platelet Count 185 K/mm3 (150-450); Red Blood Count 3.76 M/mm3 (4.7-6.0); Red Cell Distribution Width 13.2 % (11.5-14.0); White Blood Count 9.9 K/mm3 (4.0-10.5)
[2020-08-14] MEDS: ASPIRIN 81 MG TAB.CHEW PO SCH (08:52)
[2020-08-14] MEDS: RIVAROXABAN 20 MG TABLET PO SCH (08:53)
[2020-08-14] MEDS: TAMSULOSIN HCL 0.4 MG CAP.SR.24H PO SCH (08:53)
[2020-08-14] MEDS: MONTELUKAST SODIUM 10 MG TABLET PO SCH (08:53)
[2020-08-14] MEDS: predniSONE 5 MG TABLET PO SCH (08:53)
--- NOTE | 2020-08-14 23:55 | PN ---
Subjective - Date and Time Seen Date: 08/14/20 Time: 11:30 Subjective Narrative: Ashok reports feeling better today. No shortness of breath. WBC improved. He worked with PT today. Still has mares in and on oxygen. Will attempt to remove both of these and see how he does. Objective - Vitals Vitals: Last Vital Signs Temp 36.9 C 08/14/20 23:29 Pulse 84 08/14/20 23:29 Resp 24 H 08/14/20 23:29 BP 133/81 08/14/20 23:29 Pulse Ox 94 08/14/20 23:29 - Abnormal Lab Findings Abnormal Lab Findings: Abnormal Lab Results 08/14/20 08/14/20 Range/Units 06:16 06:16 RBC 3.76 L (4.7-6.0) M/mm3 Hgb 11.5 L (13.5-18.0) gm/dL Hct 36.1 L (42.0-52.0) % MCHC 31.9 L (32-36) g/dl Immature Gran # (Auto) 0.04 H (0.000-0.0310) K/mm3 Neutrophils % 77.0 H (42-75.0) % Lymphocytes % 14.4 L (20-51) % Neutrophils # 7.6 H (1.3-6.0) K/mm3 Lymphocytes # 1.43 L (1.5-3.5) k/mm3 BUN/Creatinine Ratio 23.6 H (9.0-21.6) Random Glucose 158 H (70-110) mg/dL Calcium 7.8 L (7.9-10.9) mg/dL ALT 14 L (19-67) U/L Total Protein 5.9 L (6.2-8.2) gm/dL Albumin 2.2 L (3.4-5.0) gm/dl - Exam Constitutional: Present: Alert, Oriented x3, Cooperative, No distress ENT Exam: Present: hearing grossly normal Respiratory: Present: lungs clear, normal breath sounds Cardiovascular/Chest: Present: regular rate, rhythm, no edema Abdomen: Present: Normal bowel sounds, soft, nontender, nondistended Cauti Physician Documentation - Urinary Catheter Management Urethral (Mares) Date of Insertion: 08/12/20 Time of Insertion: 03:59 Assessment/Plan Plan Narrative: Will remove mares and wean off of oxygen. WBC has normlaized and his strength is improved, he was able to participate with PT today. He is more alert. If he weans off oxygen and from mares will plan to discharge to [facility] tomorrow. - Problems/Diagnosis (1) Acute respiratory failure with hypoxia Problem: Acute (2) Bilateral interstitial pneumonia Problem: Suspected (3) Urinary retention Problem: Acute
[2020-08-15] MEDS: LEVOFLOXACIN IN DEXTROSE 5 % 750 MG/150 ML BAG IV SCH (04:50)
[2020-08-15] MEDS: ASPIRIN 81 MG TAB.CHEW PO SCH (08:07)
[2020-08-15] MEDS: predniSONE 5 MG TABLET PO SCH (08:07)
[2020-08-15] MEDS: RIVAROXABAN 20 MG TABLET PO SCH (08:07)
[2020-08-15] MEDS: TAMSULOSIN HCL 0.4 MG CAP.SR.24H PO SCH (08:07)
[2020-08-15] MEDS: MONTELUKAST SODIUM 10 MG TABLET PO SCH (08:07)
--- NOTE | 2020-08-15 09:10 | DS ---
(1) Acute respiratory failure with hypoxia Problem: Resolved (2) Bilateral interstitial pneumonia Problem: Acute (3) Urinary retention Problem: Resolved Date of Discharge:: 08/15/20 Hospital Course: Ashok is an 89 yo male admitted with acute respiratory failure secondary to bilateral pneumonia. Pneumonia was bacterial with elevated WBC and negative COVID-19. He was treated with levaquin and started on oxygen as he was 85% in the ambulance. He was placed on 2lpm via nasal canula and over his hospital course with treatment was able to be weaned off of oxygen. He initially had urinary retention from illness and was given a mares. His mares was removed yesterday and he has urinated without difficulty. Oxygen was weaned to room air yesterday. He is feeling better and strength has improved. He will be discharged to [facility] today. Will complete the rest of his levaquin by oral as outpatient. Procedures Performed: none Results and Findings: Pending Mircobiology Results 08/12/20 04:30 Blood Blood Culture - Preliminary NO GROWTH AFTER 48 HOURS 08/12/20 04:15 Blood Blood Culture - Preliminary NO GROWTH AFTER 48 HOURS Lab Pending Results 08/12/20 04:15: WBC 17.1 H, RBC 4.25 L, Hgb 13.2 L, Hct 40.7 L, MCV 95.8, MCH 31 .1 H, MCHC 32.4, RDW 13.2, Plt Count 215, MPV 10.7, Neutrophils % (Manual) 71, Band Neuts % (Manual) 14 H, Lymphocytes % (Manual) 6 L, Monocytes % (Manual) 5, Immature Granulocytes 2 H, Neutrophils # (Manual) 12.1 H, Lymphocytes # (Manual) 1.0 L, Monocytes # (Manual) 0.9, Atypic/Reactive Lymphs 2, Toxic Granulation 1+, Toxic Vacuolation 1+, Dohle Bodies 1+ 08/12/20 04:15: Sodium 140, Plasma Sodium 142, Potassium 3.8, Chloride 106, Carbon Dioxide 25.6, Anion Gap 12.2, BUN 20, Creatinine 1.01, Est GFR (Non-Af Amer) 74, BUN/Creatinine Ratio 19.8, Random Glucose 213 H, Calcium 8.3, Calcium Adj for Albumin 8.9, Total Bilirubin 0.7, AST 13, ALT 14 L, Alkaline Phosphatase 81, Troponin I 0.017, B-Natriuretic Peptide 570, Total Protein 6.3, Albumin 2.8 L, Lipase 37 L 08/12/20 04:15: Urine Color Yellow, Urine Appearance Clear, Urine pH 6.0, Ur Specific [place] 1.020, Urine Protein Negative, Urine Glucose (UA) 250 H, Urine Ketones 5, Urine Blood 5 H, Urine Nitrate Negative, Urine Bilirubin Negative, Urine Urobilinogen Normal, Ur Leukocyte Esterase Negative, Urine RBC None seen, Urine WBC None seen, Ur Epithelial Cells None seen, Urine Bacteria None seen, Urine Culture Comments Culture to follow 08/12/20 04:30: Lactic Acid, Venous 2.1 H 08/12/20 04:55: SARS-CoV-2 (PCR) Not detected 08/12/20 05:00: pCO2 30.9 L, pO2 56.1 L, HCO3 21.3, Total CO2 22.3, Base Excess -1.5, ABG pH 7.46 H, ABG O2 Sat (Measured) 91.0 L 08/12/20 07:08: Lactic Acid, Venous 2.5 H* 08/12/20 10:27: Lactic Acid, Venous 1.8 08/13/20 11:11: WBC 12.7 H D, RBC 3.68 L, Hgb 11.4 L, Hct 35.2 L, MCV 95.7, MCH 31.0, MCHC 32.4, RDW 13.4, Plt Count 171, MPV 10.1, Immature Gran % (Auto) 0.70 H, Immature Gran # (Auto) 0.09 H, Neutrophils % 82.4 H, Lymphocytes % 10.4 L, Monocytes % 5.7, Eosinophils % 0.6, Basophils % 0.2, Nucleated RBC % 0.0, Neutrophils # 10.5 H, Lymphocytes # 1.33 L, Monocytes # 0.7, Eosinophils # 0.1, Absolute Basophils 0.0 08/13/20 11:11: Sodium 138, Plasma Sodium 139, Potassium 3.8, Chloride 106, Carbon Dioxide 27.6, Anion Gap 8.2, BUN 17, Creatinine 0.85, Est GFR (Non-Af Amer) 90 D, BUN/Creatinine Ratio 20.0, Random Glucose 138 H D, Calcium 8.2, Calcium Adj for Albumin 9.2, Total Bilirubin 0.5, AST 22, ALT 16 L, Alkaline Phosphatase 72, Total Protein 5.9 L, Albumin 2.3 L 08/14/20 06:16: WBC 9.9 D, RBC 3.76 L, Hgb 11.5 L, Hct 36.1 L, MCV 96.0, MCH 30.6, MCHC 31.9 L, RDW 13.2, Plt Count 185, MPV 10.9, Immature Gran % (Auto) 0.40, Immature Gran # (Auto) 0.04 H, Neutrophils % 77.0 H, Lymphocytes % 14.4 L, Monocytes % 5.5, Eosinophils % 2.4, Basophils % 0.3, Nucleated RBC % 0.0, Neutrophils # 7.6 H, Lymphocytes # 1.43 L, Monocytes # 0.6, Eosinophils # 0.2, Absolute Basophils 0.0 08/14/20 06:16: Sodium 137, Plasma Sodium 138, Potassium 3.7, Chloride 105, Carbon Dioxide 26.3, Anion Gap 9.4, BUN 17, Creatinine 0.72, Est GFR (Non-Af Amer) 110 D, BUN/Creatinine Ratio 23.6 H, Random Glucose 158 H, Calcium 7.8 L, Calcium Adj for Albumin 8.9, Total Bilirubin 0.5, AST 19, ALT 14 L, Alkaline Phosphatase 74, Total Protein 5.9 L, Albumin 2.2 L Discharge Location: [facility] Disposition: SNF Condition: Stable Discharge Activity: Activity as tolerated Discharge Diet: General/regular food Correction Therapy: Physical Therapy, Occupation Therapy Referrals: Martín Caba DO [Primary Care Provider] - One Week (Video visits at custodial) Problem Oriented Discharge Instructions to Patient/Family: Community-Acquired Pneumonia, Adult, [facility] Additional Patient Instructions (free text): To [facility] for PT and OT to evaluate and treat. Prescriptions (Any new or edited meds): Levofloxacin [Levaquin] 750 mg PO DAILY #7 tab Transmission Status: Pending to [facility] Complete Home Medications List: Complete Home Medication List: Aspirin [Aspirin Chewable] 81 mg PO DAILY 01/17/14 Multivit-Min/FA/Lycopene/Lut [Centrum Silver Tablet] 1 ea PO DAILY 01/17/14 Beta-Carotene(A) W-C , E/Min [Ocuvite] 1 tab PO DAILY 06/25/17 Acetaminophen [Tylenol] 650 mg PO Q6H PRN tab 06/26/17 calcium carbonate 500 mg calcium (1,250 mg) tablet 1,000 mg PO DAILY 05/06/18 rivaroxaban 20 mg tablet 20 mg PO DAILY #90 tab 04/02/20 montelukast 10 mg tablet 10 mg PO DAILY #90 tab 04/16/20 Tamsulosin HCl [Flomax] 0.4 mg PO DAILY 08/12/20 predniSONE [Prednisone] 5 mg PO DAILY 08/12/20 Levofloxacin [Levaquin] 750 mg PO DAILY #7 tab 08/15/20 Forms: Patient Portal Registration
[2020-08-15 13:06] VITALS: BP 153/72
== END 2020-08-15 13:15 | DRG 196 ==
LOC: ER 03:45 → MS 03:45 → INTOOBSV 06:18 → OBSVTOIN 06:18 → MS 07:16
PROVIDERS: ADMIT Family Medicine; ATTEND Family Medicine
DX: N40.0 Benign prostatic hyperplasia without lower urinary tract symptoms; R33.9 Retention of urine, unspecified; M35.3 Polymyalgia rheumatica; Z86.718 Personal history of other venous thrombosis and embolism; I10 Essential (primary) hypertension; Z86.12 Personal history of poliomyelitis; J84.9 Interstitial pulmonary disease, unspecified; J96.01 Acute respiratory failure with hypoxia; K59.00 Constipation, unspecified